=== PATIENT | male | born 1960 | race Caucasian/White ===

== ENCOUNTER 2018-03-30 10:32 | Emergency (ER) | payer MEDICARE ==
[2018-03-30 10:46] VITALS: BP 164/95; PULSE 69; RESP 16; TEMP 97.6; O2SAT 95
[2018-03-30] MEDS ORDERED: METF1000 PO (11:39)
[2018-03-30] MEDS ORDERED: NIAC500T5 PO (11:39)
[2018-03-30] MEDS ORDERED: D 50CAP2 PO (11:39)
[2018-03-30] MEDS ORDERED: OXYC-103 PO (11:39)
[2018-03-30] MEDS ORDERED: ATOR80TA45 PO (11:39)
[2018-03-30] MEDS ORDERED: GLIM1TAB PO (11:39)
[2018-03-30] MEDS ORDERED: FAMO20TA2 PO (11:39)
[2018-03-30] MEDS ORDERED: ASPI-516 CHEW (11:39)
[2018-03-30] MEDS ORDERED: LISI-519 PO (11:39)
[2018-03-30] MEDS ORDERED: CARV6.252 PO (11:39)
[2018-03-30] MEDS ORDERED: GABA400C5 PO (11:39)
[2018-03-30] MEDS ORDERED: PLAV75TA29 PO (11:39)
[2018-03-30] MEDS ORDERED: ISOS60TA PO (11:39)
--- NOTE | 2018-03-30 12:16 | PD ---
HPI Chief Complaint: Edema Time Seen by Provider: 12:05 Travel History International Travel<30 days: No Contact w/Intl Traveler<30days: No Traveled to known affect area: No History of Present Illness HPI This 58-year-old male is complaining of swelling of both feet. Says he noticed it yesterday and it seemed worse today. He is not aware of having this before. He has a history of coronary artery disease and has had bypass surgery. He is not aware of any history of CHF. He has not been short of breath. He lives in [place] and sent in a car for 10 hours 3 days ago to come here to visit his friend. He does take Plavix PFSH Past Medical History Hx Anticoagulant Therapy: Yes Cardiac Catheterization: Yes Cardiovascular Problems: Yes (BYPASS, STENT, LEFT CAROTID) High Cholesterol: Yes Chest Pain: Yes Coronary Artery Disease: Yes Diabetes: Yes Patient Takes Glucophage: Yes Diminished Hearing: No Hypertension: Yes Musculoskeletal: Yes (DDD/CHRONIC PAIN) Tetanus Vaccination: < 5 Years Influenza Vaccination: Yes Past Surgical History Cardiac Surgery: Yes (CARODIDECTOMY) Coronary Artery Bypass Graft: Yes (X4) Coronary Stent: Yes Social History Alcohol Use: Yes (SOCIAL) Tobacco Use: Yes (1/2 PPD) Substance Use: No Allergies-Medications (Allergen,Severity, Reaction): Coded Allergies: No Known Drug Allergies (Verified Allergy, Unknown, 03/30/18) Reported Meds & Prescriptions Reported Meds & Active Scripts Active Reported Niacin 500 Mg Tab 500 Mg PO DAILY Gabapentin 400 Mg Cap 400 Cap PO TID Oxycontin (Oxycodone HCl) 10 Mg Tab 27 Mg PO Q12HR Lisinopril 5 Mg Tab 5 Mg PO DAILY Aspirin 81 Mg Chew 81 Mg CHEW DAILY D3 Maximum Strength (Cholecalciferol) 5,000 Unit Cap 5,000 Units PO DAILY Plavix (Clopidogrel Bisulfate) 75 Mg Tab 75 Mg PO DAILY Metformin (Metformin HCl) 1,000 Mg Tab 1,000 Mg PO BIDPC Carvedilol 6.25 Mg Tab 6.25 Mg PO BID Atorvastatin (Atorvastatin Calcium) 80 Mg Tab 80 Mg PO HS Isosorbide Mononitrate ER (Isosorbide Mononitrate) 60 Mg Tab 60 Mg PO DAILY Famotidine 20 Mg Tab 20 Mg PO BID Glimepiride 1 Mg Tab 1 Mg PO DAILY Take with breakfast or first main meal Review of Systems General / Constitutional: No: Fever, Chills Eyes: No: Diploplia, Blurred Vision HENT: No: Headaches, Vertigo Cardiovascular: Positive: Edema, No: Chest Pain or Discomfort, Palpitations Respiratory: No: Cough, Shortness of Breath Gastrointestinal: No: Nausea, Vomiting Genitourinary: No: Urgency, Frequency Skin: No Rash Neurologic: No: Weakness Physical Exam Narrative GENERAL: Well-developed male SKIN: Focused skin assessment warm/dry. HEAD: Atraumatic. Normocephalic. EYES: Pupils equal and round. No scleral icterus. No injection or drainage. ENT: No nasal bleeding or discharge. Mucous membranes pink and moist. NECK: Trachea midline. No JVD. CARDIOVASCULAR: Regular rate and rhythm. No murmur appreciated. RESPIRATORY: No accessory muscle use. Clear to auscultation. Breath sounds equal bilaterally. GASTROINTESTINAL: Abdomen soft, non-tender, nondistended. Hepatic and splenic margins not palpable. MUSCULOSKELETAL: No obvious deformities. No clubbing. No cyanosis. There is bilateral pedal edema NEUROLOGICAL: Awake and alert. No obvious cranial nerve deficits. Motor grossly within normal limits. Normal speech. PSYCHIATRIC: Appropriate mood and affect; insight and judgment normal. Data Data Last Documented VS Vital Signs Date Time Temp Pulse Resp B/P (MAP) Pulse Ox O2 Delivery O2 Flow Rate FiO2 03/30/18 11:29 96 Room Air 03/30/18 10:46 97.6 69 16 164/95 (118) Orders Orders Complete Blood Count With Diff (03/30/18 12:10) Comprehensive Metabolic Panel (03/30/18 12:10) B-Type Natriuretic Peptide (03/30/18 12:10) Chest, Single Ap (03/30/18 12:10) Us Leg Venous Doppler Bilat (03/30/18 12:10) Labs Laboratory Tests Test 03/30/18 12:25 White Blood Count 9.3 TH/MM3 Red Blood Count 4.09 MIL/MM3 Hemoglobin 13.5 GM/DL Hematocrit 40.7 % Mean Corpuscular Volume 99.6 FL Mean Corpuscular Hemoglobin 32.9 PG Mean Corpuscular Hemoglobin Concent 33.1 % Red Cell Distribution Width 14.1 % Platelet Count 249 TH/MM3 Mean Platelet Volume 8.4 FL Neutrophils (%) (Auto) 65.3 % Lymphocytes (%) (Auto) 25.0 % Monocytes (%) (Auto) 7.9 % Eosinophils (%) (Auto) 0.9 % Basophils (%) (Auto) 0.9 % Neutrophils # (Auto) 6.1 TH/MM3 Lymphocytes # (Auto) 2.3 TH/MM3 Monocytes # (Auto) 0.7 TH/MM3 Eosinophils # (Auto) 0.1 TH/MM3 Basophils # (Auto) 0.1 TH/MM3 CBC Comment DIFF FINAL Differential Comment Blood Urea Nitrogen 16 MG/DL Creatinine 0.82 MG/DL Random Glucose 71 MG/DL Total Protein 6.8 GM/DL Albumin 3.5 GM/DL Calcium Level 8.9 MG/DL Alkaline Phosphatase 71 U/L Aspartate Amino Transf (AST/SGOT) 21 U/L Alanine Aminotransferase (ALT/SGPT) 23 U/L Total Bilirubin 0.4 MG/DL Sodium Level 139 MEQ/L Potassium Level 4.4 MEQ/L Chloride Level 104 MEQ/L Carbon Dioxide Level 29.7 MEQ/L Anion Gap 5 MEQ/L Estimat Glomerular Filtration Rate 97 ML/MIN B-Type Natriuretic Peptide 221 PG/ML MDM Medical Decision Making Medical Screen Exam Complete: Yes Emergency Medical Condition: Yes Medical Record Reviewed: Yes Differential Diagnosis Differential includes dependent edema, CHF, DVT Narrative Course Patient was on a 10 hour car ride just 3 days ago so an ultrasound was done to assess for DVT and has been read as negative. BNP is 220 and x-ray is read as negative. Patient will be given a short course of Lasix. Diagnosis Primary Impression: Dependent edema Scripts Potassium Chloride ER (Potassium Chloride ER) 10 Meq Tab 10 MEQ PO DAILY for Electrolyte Replacement, #10 TAB 0 Refills Prov: Ashok Landers MD 03/30/18 Furosemide (Lasix) 40 Mg Tab 40 MG PO DAILY, #30 TAB 0 Refills Prov: Ashok Landers MD 03/30/18 Disposition: 01 DISCHARGE HOME Condition: Stable Ashok Landers MD March 30, 2018 12:16
[2018-03-30 12:38] LABS: AUTOMATED NEUTROPHIL # 6.1 TH/MM3 (1.8-7.7); BASOPHIL # 0.1 TH/MM3 (0-0.2); BASOPHIL % 0.9 % (0.0-2.0); EOSINOPHIL # 0.1 TH/MM3 (0-0.4); EOSINOPHIL % 0.9 % (0.0-4.0); HEMATOCRIT 40.7 % (39.0-51.0); HEMOGLOBIN 13.5 GM/DL (13.0-17.0); LYMPHOCYTE # 2.3 TH/MM3 (1.0-4.8); MEAN CELL VOLUME 99.6 FL (80.0-100.0); MEAN CORPUSCULAR HEMOGLOBIN 32.9 PG (27.0-34.0); MEAN CORPUSCULAR HGB CONC 33.1 % (32.0-36.0); MEAN PLATELET VOLUME 8.4 FL (7.0-11.0); MONO % 7.9 % (0.0-8.0); MONOCYTE # 0.7 TH/MM3 (0-0.9); NEUT % 65.3 % (16.0-70.0); PLATELET COUNT 249 TH/MM3 (150-450); RED BLOOD COUNT 4.09 MIL/MM3 (4.50-5.90); RED CELL DISTRIBUTION WIDTH 14.1 % (11.6-17.2); WHITE BLOOD COUNT 9.3 TH/MM3 (4.0-11.0)
[2018-03-30 12:49] LABS: CHLORIDE 104 MEQ/L (98-107); SODIUM (NA) 139 MEQ/L (136-145)
[2018-03-30 12:53] LABS: ALBUMIN 3.5 GM/DL (3.4-5.0); BICARBONATE 29.7 MEQ/L (21.0-32.0); CALCIUM 8.9 MG/DL (8.5-10.1); GLUCOSE,RANDOM 71 MG/DL (74-106)
[2018-03-30 12:54] LABS: BLOOD UREA NITROGEN 16 MG/DL (7-18)
[2018-03-30 12:56] LABS: ALT (GPT) 23 U/L (12-78); AST (GOT) 21 U/L (15-37); CREATININE 0.82 MG/DL (0.60-1.30); GLOMERULAR FILTRATION RATE 97 ML/MIN (>89)
[2018-03-30 12:58] LABS: TOTAL BILIRUBIN ADULT 0.4 MG/DL (0.2-1.0); TOTAL PROTEIN 6.8 GM/DL (6.4-8.2)
[2018-03-30 12:59] LABS: ALKALINE PHOSPHATASE 71 U/L (45-117)
--- NOTE | 2018-03-30 13:18 | RADRPT ---
EXAM DATE/TIME: 03/30/2018 13:04 [facility] COMPARISON: No previous studies available for comparison. INDICATIONS : Short of breath, bilateral lower extremity swelling. MEDICAL HISTORY : Hypertension. Diabetes mellitus type II. SURGICAL HISTORY : CABG. ENCOUNTER: Initial ACUITY: 2 days PAIN SCORE: 0/10 LOCATION: Bilateral chest FINDINGS: A single view of the chest demonstrates the lungs to be symmetrically aerated without evidence of mas s, infiltrate or effusion. The cardiomediastinal contours are unremarkable. Osseous structures are intact. Pleural based calcifications at the left lung base. CONCLUSION: No acute disease. Leonel David MD on March 30, 2018 at 13:15 Board Certified Radiologist. This report was verified electronically.
--- NOTE | 2018-03-30 13:30 | RADRPT ---
EXAM DATE/TIME: 03/30/2018 12:40 [facility] COMPARISON: No previous studies available for comparison. INDICATIONS : Bilateral feet swelling. MEDICAL HISTORY : Hypercholesterolemia. Hypertension. Coronary artery disease. Chest pain. Diabetes. Chronic back pain . Anticoagulant therapy, Plavix. SURGICAL HISTORY : CABGCoronary artery stent. Left carotid endarectomy. Cardiac cath. ENCOUNTER: Initial ACUITY: 2 day PAIN SCORE: 0/10 LOCATION: Bilateral leg. TECHNIQUE: Venous ultrasound of the left and right leg was performed from the inguinal ligament to the proximal calf. Real-time, color Doppler and spectral tracing, compression and augmentation techniques were us ed. FINDINGS: RIGHT LEG: There is normal compressibility of the deep venous system from the inguinal region to the proximal ca lf. No echogenic clot is seen in the lumen of the common femoral, femoral, popliteal, and posterior tibial veins. There is a normal response of the venous system to proximal and distal augmentation an d respiration. LEFT LEG: There is normal compressibility of the deep venous system from the inguinal region to the proximal ca lf. No echogenic clot is seen in the lumen of the common femoral, femoral, popliteal, and posterior tibial veins. There is a normal response of the venous system to proximal and distal augmentation an d respiration. 3.4 x 0.9 x 1.3 cm popliteal fossa cyst. CONCLUSION: No evidence for DVT. Left Murphy's cyst. Leonel David MD on March 30, 2018 at 13:27 Board Certified Radiologist. This report was verified electronically.
[2018-03-30] MEDS ORDERED: POTA10TA2 PO (14:49)
[2018-03-30] MEDS ORDERED: FURO1TAB60 PO (14:49)
[2018-03-30 15:03] VITALS: BP 188/95
== END 2018-03-30 15:19 | disposition home or self-care (01) ==
LOC: PHED 10:32
DX: R60.9 Edema, unspecified (principal); E78.00 Pure hypercholesterolemia, unspecified; I25.10 Atherosclerotic heart disease of native coronary artery without angina pectoris; E11.9 Type 2 diabetes mellitus without complications; I10 Essential (primary) hypertension; G89.29 Other chronic pain; Z95.1 Presence of aortocoronary bypass graft; Z95.5 Presence of coronary angioplasty implant and graft; F17.200 Nicotine dependence, unspecified, uncomplicated
CPT/HCPCS: 71045; 80053; 83880; 85025; 93970

== ENCOUNTER 2018-06-03 11:03 | Inpatient (IN) ==
[2018-06-03] MEDS ORDERED: Naloxone Inj 2 MG/2 ML Vial IV.PUSH ONE (11:12)
[2018-06-03] MEDS ORDERED: Sod Chloride 0.9% Inj 1,000 ML IV.SIG SCH ×2 (11:15)
[2018-06-03] MEDS ORDERED: Sod Chloride 0.9% Inj 700 ML IV.SIG SCH (11:15)
[2018-06-03 11:33] LABS: Baso % (Auto) 0.2 % (0.0-2.0); Eos % (Auto) 0.1 % (0.0-4.0); Hematocrit 34.8 % (39.0-51.0); Hemoglobin 11.2 gm/dL (13.0-17.0); Lymph # (Auto) 0.7 th/mm3 (1.0-4.8); Lymph % (Auto) 12.4 % (9.0-44.0); Mean Corpuscular Hemoglobin 33.6 pg (27.0-34.0); Mean Corpuscular Volume 105.1 fL (80.0-100.0); Mean Platelet Volume 8.6 fL (7.0-11.0); Mono # (Auto) 0.5 th/mm3 (0.0-0.9); Mono % (Auto) 9.2 % (0.0-8.0); Neut # (Auto) 4.6 th/mm3 (1.8-7.7); Neut % (Auto) 78.1 % (16.0-70.0); Platelet Count 161 th/mm3 (150-450); Red Blood Count 3.32 mil/mm3 (4.50-5.90); Red Cell Distribution Width 15.2 % (11.6-17.2); White Blood Count 5.9 th/mm3 (4.0-11.0)
[2018-06-03 11:46] LABS: Activated Partial Thrombo Time 23.9 sec (24.3-30.1); INR 1.1 Ratio; Prothrombin Time 11.4 sec (9.8-11.6)
[2018-06-03 11:54] LABS: Albumin 2.7 g/dL (3.4-5.0); Anion Gap 9 meq/L (5-15); Aspartate Aminotransferase 513 U/L (15-37); Blood Urea Nitrogen 25 mg/dL (7-18); Carbon Dioxide 28.2 meq/L (21.0-32.0); Chloride 103 meq/L (98-107); Glomerular Filtration Rate 24 mL/min (>89); Glucose,Random 115 mg/dL (74-106); Potassium 5.5 meq/L (3.5-5.1); Sodium 140 meq/L (136-145)
[2018-06-03 11:55] LABS: Alanine Aminotransferase 389 U/L (12-78)
--- NOTE | 2018-06-03 11:57 | XR ---
EXAM DATE: 06/03/2018 11:52 AM EDT AGE/SEX: 89 years / Male INDICATIONS: Stroke like symptoms, slurred speech. CLINICAL DATA: This is the patient's initial encounter. Patient reports that signs and symptoms have been present for 1 day and indicates a pain score of Nonresponsive. MEDICAL/SURGICAL HISTORY: Non-responsive. Non-responsive. COMPARISON: No prior exams available for comparison. FINDINGS: A single AP view of the chest demonstrates elevation of the right hemidiaphragm. Suggestion of some d iaphragmatic or pleural-based calcifications in the left base. No confluent infiltrate. Heart size is prominent but well compensated. Intact median sternotomy wires. Multilevel degenerative spurring of the dorsal spine. Osseous structures are otherwise intact. CONCLUSION: 1. Heart size is borderline prominent but well compensated. 2. No confluent infiltrate. 3. Suggestion of pleural or diaphragmatic based calcifications in the left base. Electronically signed by: Arturo Milner MD 06/03/2018 11:56 AM EDT
[2018-06-03 11:58] LABS: Alkaline Phosphatase 122 U/L (45-117); Total Protein 5.4 g/dL (6.4-8.2)
[2018-06-03 12:02] LABS: Troponin I 4.53 ng/mL (0.02-0.05)
--- NOTE | 2018-06-03 12:59 | ED ---
HPI General Chief Complaint: Altered Mental Status Stated Complaint: Medical Time Seen by Provider: 06/03/18 11:07 Source: patient, family, EMS and other ([employer]) Mode of arrival: EMS Limitations: altered mental status History of Present Illness HPI narrative: The patient is a 58-year-old male with a past medical history of coronary artery disease and ischemic cardiomyopathy with a reduced EF that was brought to the emergency department with altered mental status and pinpoint pupils. As per paramedics he was hypotensive on arrival the house with a systolic blood pressure of 70 and they started him on fluids. Patient was arousable and responding to painful stimuli. After the patient was given Narcan he immediately became a lot more alert as aggressive with staff and did not want us to intervene. I was able to discuss his presentation with him and he was more compliant allow us to intervene. He did not have any complaints no chest pain nausea vomiting no dizziness. He denied any drug use. He states that he has pain medication that he only takes once a day and he did not take more. MD complaint: altered mental status and decreased responsiveness Onset (ago): unknown Context: drug abuse (Possibly) Associated symptoms: denies other symptoms Related Data Home Medications Medication Instructions Recorded Confirmed Unable to Obtain Home Meds 06/03/18 06/03/18 Allergies Allergy/AdvReac Type Severity Reaction Status Date / Time No Known Allergies Allergy Unverified 06/03/18 11:07 Review of Systems ROS Unobtainable unobtainable due to mental condition Patient initially somnolent unable to obtain review of systems. However after he was given Narcan he woke up. On the multiple reevaluation she was asked if he had any shortness of breath chest pain headache nausea vomiting fransico denied at all times. [facility] Medical History Medical History Diabetes (Acute) Hypertension (Acute) Surgical History Surgical History S/P CABG x 4 (Acute) Social History Social History Substance History: Unable to Obtain Smoking Status: Current every day smoker Tobacco Type: Cigarettes How Often Do You Have a Drink Containing Alcohol: Unable to Obtain Recent Travel in [facility] within the Last 8 Weeks: No Recent Out of Country Travel within the Last 8 Weeks: No Immunization History Tetanus Immunization: Unsure Exam Const General: does not appear intoxicated and lethargic Nutritional Appearance: well nourished Orientation: obtunded Limitations: altered mental status [facility] Head: no palpable skull fracture, normocephalic and atraumatic Nose: no nasal discharge and no epistaxis Mouth: moist mucous membranes Eyes Sclera: normal sclerae Pupils: pinpoint bilaterally Neck Neck: normal visual inspection, trachea midline and no JVD Chest Chest: normal inspection of the chest Resp Effort & Inspection: normal respiratory effort and no use of accessory muscles Auscultation: clear to auscultation bilaterally Cardio Rate: regular rate Rhythm: regular rhythm Heart Sounds: no murmurs Bruits: no abdominal aortic bruits and no carotid bruits GI Inspection: non-distended Palpation: soft, no hepatosplenomegaly and nontender Skin General: dry skin (warm) Neuro General: not alert and not awake Cranial Nerves: CN's II-XI intact bilaterally and other Speech: speech normal Motor: no movement abnormalities noted Pupils: Pinpoint: bilateral Other: Patient sedated arouses to sternal rub. after he was given Narcan he was more alert was able to perform an neuro exam however he does not want to follow commands appears to move all extremities without any signs of neurologic deficit. Extrem General: normal to inspection, no clubbing, no cyanosis and no edema Psych Mood: congruent mood Affect: normal affect Judgment: judgment good Course Reevaluation(s) Reevaluation #3: Reevaluation patient is resting comfortably no distress blood pressure 96/54. His troponin the repeat is actually higher than the initial one still no ST elevation [place] on repeat EKG. Time: 13:03 Consultations Consultation #1: Possibly cardiac cath in the a.m. Hold heparin at this time. Will obtain a head CT. Time: 13:15 Initial Documented Vital Signs Pulse Oximetry 94 L 06/03/18 11:03 Last Documented Vital Signs Temperature 97.6 F 06/03/18 17:00 Pulse Rate 104 H 06/03/18 17:00 Respiratory Rate 22 06/03/18 17:05 Blood Pressure 109/73 06/03/18 17:00 Pulse Oximetry 97 06/03/18 18:00 Critical Care Time Critical Care Time: Yes Total Critical Care Time: 30 Attestation: Upon of my evaluation patient has a high probability of imminent or life threatening deterioration due to mental status elevated troponin and possibly drug overdose which require my direct attention intervention and personal management. Spent approximately 30 minutes of critical care time separately from billable procedures. Time includes review of laboratory data, radiology results, discussion with consultants, and monitoring for potential decompensations. Interventions were performed as documented within the note. Medical Decision Making MDM Narrative Medical decision making narrative: Patient likely with opiate overdose since he responded well to Narcan. Acute kidney injury likely secondary to hypotension also and STEMI likely secondary to demand ischemia. Hyperkalemia 5.5 also noted patient was given calcium chloride, D50, insulin. No EKG changes due to hyperkalemia Elevated troponin was noted patient denied chest pain or shortness of breath. EKG not suggestive of ST elevation [place]. Presentation was discussed with interventional cardiology but will follow the patient. Lab Data Lab results reviewed: Yes I reviewed the patient's lab results. Result diagrams: 06/03/18 11:20 06/03/18 11:20 Lab Results 06/03/18 06/03/18 06/03/18 Range/Units 11:20 11:20 11:20 WBC 5.9 (4.0-11.0) th/mm3 RBC 3.32 L (4.50-5.90) mil/mm3 Hgb 11.2 L (13.0-17.0) gm/dL Hct 34.8 L (39.0-51.0) % MCV 105.1 H (80.0-100.0) fL MCH 33.6 (27.0-34.0) pg MCHC 32.0 (32.0-36.0) % RDW 15.2 (11.6-17.2) % Plt Count 161 (150-450) th/mm3 MPV 8.6 (7.0-11.0) fL Neut % (Auto) 78.1 H (16.0-70.0) % Lymph % (Auto) 12.4 (9.0-44.0) % [place] % (Auto) 9.2 H (0.0-8.0) % Eos % (Auto) 0.1 (0.0-4.0) % Baso % (Auto) 0.2 (0.0-2.0) % Neut # (Auto) 4.6 (1.8-7.7) th/mm3 Lymph # (Auto) 0.7 L (1.0-4.8) th/mm3 Jennings # (Auto) 0.5 (0.0-0.9) th/mm3 Eos # (Auto) 0.0 (0.0-0.4) th/mm3 Baso # (Auto) 0.0 (0.0-0.2) th/mm3 WBC Differential . Differential Comment Auto diff final PT 11.4 (9.8-11.6) sec INR 1.1 Ratio APTT 23.9 L (24.3-30.1) sec Puncture Site Patient Temperature O2 Saturation (90-100) % ABG pH (7.380-7.420) ABG pCO2 (38-42) mmHg ABG pO2 (61-120) mmHg ABG HCO3 (22-26) mmol/L ABG O2 Content (12.0-20.0) Vol % ABG Base Excess (-2-2) mmol/L ABG Methemoglobin (0-2) % Walter Test Hemoglobin (12.0-16.0) G/DL Carboxyhemoglobin (0-4) % O2 Delivery Device Liter Flow L/M Inspired O2 % Critical Value Sodium (136-145) meq/L Potassium (3.5-5.1) meq/L Chloride (98-107) meq/L Carbon Dioxide (21.0-32.0) meq/L Anion Gap (5-15) meq/L BUN (7-18) mg/dL Creatinine (0.60-1.30) mg/dL Estimated GFR (>89) mL/min Random Glucose (74-106) mg/dL Lactic Acid (0.4-2.0) mmol/L Calcium (8.5-10.1) mg/dL Magnesium 2.0 (1.5-2.5) mg/dL Total Bilirubin (0.2-1.0) mg/dL AST (15-37) U/L ALT (12-78) U/L Alkaline Phosphatase (45-117) U/L Total Creatine Kinase (39-308) U/L CK-MB (CK-2) (0.5-3.6) ng/mL Troponin I 4.53 H* (0.02-0.05) ng/mL Total Protein (6.4-8.2) g/dL Albumin (3.4-5.0) g/dL Urine Color (Yellw/Straw) Urine Clarity (Clear) Urine pH (5.0-8.5) Ur Specific [place] (1.002-1.035) Urine Protein (Neg-Trace) mg/dL Urine Glucose (UA) (Negative) mg/dL Urine Ketones (Negative) mg/dL Urine Occult Blood (Negative) Urine Nitrate (Negative) Urine Bilirubin (Negative) Urine Urobilinogen (Less than 2) mg/dL Ur Leukocyte Esterase (Negative) Urine RBC (0-3) /hpf Urine WBC (0-5) /hpf Ur Squamous Epith Cells (0-5) /hpf Hyaline Casts (0-3) /lpf Urine Mucus (Occasional) /lpf Micro UA Comment Urine Culture Comments Urine Opiates Screen (Neg) Ur Barbiturates Screen (Neg) Ur Amphetamines Screen (Neg) U Benzodiazepines Scrn (Neg) Urine Cocaine Screen (Neg) U Cannabinoids Screen (Neg) Serum Alcohol (0-5) mg/dL 06/03/18 06/03/18 06/03/18 Range/Units 11:20 11:20 11:20 WBC (4.0-11.0) th/mm3 RBC (4.50-5.90) mil/mm3 Hgb (13.0-17.0) gm/dL Hct (39.0-51.0) % MCV (80.0-100.0) fL MCH (27.0-34.0) pg MCHC (32.0-36.0) % RDW (11.6-17.2) % Plt Count (150-450) th/mm3 MPV (7.0-11.0) fL Neut % (Auto) (16.0-70.0) % Lymph % (Auto) (9.0-44.0) % [place] % (Auto) (0.0-8.0) % Eos % (Auto) (0.0-4.0) % Baso % (Auto) (0.0-2.0) % Neut # (Auto) (1.8-7.7) th/mm3 Lymph # (Auto) (1.0-4.8) th/mm3 [place] # (Auto) (0.0-0.9) th/mm3 Eos # (Auto) (0.0-0.4) th/mm3 Baso # (Auto) (0.0-0.2) th/mm3 WBC Differential Differential Comment PT (9.8-11.6) sec INR Ratio APTT (24.3-30.1) sec Puncture Site Patient Temperature O2 Saturation (90-100) % ABG pH (7.380-7.420) ABG pCO2 (38-42) mmHg ABG pO2 (61-120) mmHg ABG HCO3 (22-26) mmol/L ABG O2 Content (12.0-20.0) Vol % ABG Base Excess (-2-2) mmol/L ABG Methemoglobin (0-2) % Walter Test Hemoglobin (12.0-16.0) G/DL Carboxyhemoglobin (0-4) % O2 Delivery Device Liter Flow L/M Inspired O2 % Critical Value Sodium 140 (136-145) meq/L Potassium 5.5 H (3.5-5.1) meq/L Chloride 103 (98-107) meq/L Carbon Dioxide 28.2 (21.0-32.0) meq/L Anion Gap 9 (5-15) meq/L BUN 25 H (7-18) mg/dL Creatinine 2.31 H (0.60-1.30) mg/dL Estimated GFR 24 L (>89) mL/min Random Glucose 115 H (74-106) mg/dL Lactic Acid 2.3 H (0.4-2.0) mmol/L Calcium 8.0 L (8.5-10.1) mg/dL Magnesium (1.5-2.5) mg/dL Total Bilirubin 0.6 (0.2-1.0) mg/dL AST 513 H (15-37) U/L ALT 389 H (12-78) U/L Alkaline Phosphatase 122 H (45-117) U/L Total Creatine Kinase (39-308) U/L CK-MB (CK-2) (0.5-3.6) ng/mL Troponin I (0.02-0.05) ng/mL Total Protein 5.4 L (6.4-8.2) g/dL Albumin 2.7 L (3.4-5.0) g/dL Urine Color (Yellw/Straw) Urine Clarity (Clear) Urine pH (5.0-8.5) Ur Specific [place] (1.002-1.035) Urine Protein (Neg-Trace) mg/dL Urine Glucose (UA) (Negative) mg/dL Urine Ketones (Negative) mg/dL Urine Occult Blood (Negative) Urine Nitrate (Negative) Urine Bilirubin (Negative) Urine Urobilinogen (Less than 2) mg/dL Ur Leukocyte Esterase (Negative) Urine RBC (0-3) /hpf Urine WBC (0-5) /hpf Ur Squamous Epith Cells (0-5) /hpf Hyaline Casts (0-3) /lpf Urine Mucus (Occasional) /lpf Micro UA Comment Urine Culture Comments Urine Opiates Screen (Neg) Ur Barbiturates Screen (Neg) Ur Amphetamines Screen (Neg) U Benzodiazepines Scrn (Neg) Urine Cocaine Screen (Neg) U Cannabinoids Screen (Neg) Serum Alcohol Less than 3 (0-5) mg/dL 06/03/18 06/03/18 06/03/18 Range/Units 12:20 12:20 14:25 WBC (4.0-11.0) th/mm3 RBC (4.50-5.90) mil/mm3 Hgb (13.0-17.0) gm/dL Hct (39.0-51.0) % MCV (80.0-100.0) fL MCH (27.0-34.0) pg MCHC (32.0-36.0) % RDW (11.6-17.2) % Plt Count (150-450) th/mm3 MPV (7.0-11.0) fL Neut % (Auto) (16.0-70.0) % Lymph % (Auto) (9.0-44.0) % Jennings % (Auto) (0.0-8.0) % Eos % (Auto) (0.0-4.0) % Baso % (Auto) (0.0-2.0) % Neut # (Auto) (1.8-7.7) th/mm3 Lymph # (Auto) (1.0-4.8) th/mm3 [place] # (Auto) (0.0-0.9) th/mm3 Eos # (Auto) (0.0-0.4) th/mm3 Baso # (Auto) (0.0-0.2) th/mm3 WBC Differential Differential Comment PT (9.8-11.6) sec INR Ratio APTT (24.3-30.1) sec Puncture Site Patient Temperature O2 Saturation (90-100) % ABG pH (7.380-7.420) ABG pCO2 (38-42) mmHg ABG pO2 (61-120) mmHg ABG HCO3 (22-26) mmol/L ABG O2 Content (12.0-20.0) Vol % ABG Base Excess (-2-2) mmol/L ABG Methemoglobin (0-2) % Walter Test Hemoglobin (12.0-16.0) G/DL Carboxyhemoglobin (0-4) % O2 Delivery Device Liter Flow L/M Inspired O2 % Critical Value Sodium (136-145) meq/L Potassium (3.5-5.1) meq/L Chloride (98-107) meq/L Carbon Dioxide (21.0-32.0) meq/L Anion Gap (5-15) meq/L BUN (7-18) mg/dL Creatinine (0.60-1.30) mg/dL Estimated GFR (>89) mL/min Random Glucose (74-106) mg/dL Lactic Acid 2.4 H (0.4-2.0) mmol/L Calcium (8.5-10.1) mg/dL Magnesium (1.5-2.5) mg/dL Total Bilirubin (0.2-1.0) mg/dL AST (15-37) U/L ALT (12-78) U/L Alkaline Phosphatase (45-117) U/L Total Creatine Kinase 274 (39-308) U/L CK-MB (CK-2) 12.7 H (0.5-3.6) ng/mL Troponin I 5.22 H* (0.02-0.05) ng/mL Total Protein (6.4-8.2) g/dL Albumin (3.4-5.0) g/dL Urine Color (Yellw/Straw) Urine Clarity (Clear) Urine pH (5.0-8.5) Ur Specific [place] (1.002-1.035) Urine Protein (Neg-Trace) mg/dL Urine Glucose (UA) (Negative) mg/dL Urine Ketones (Negative) mg/dL Urine Occult Blood (Negative) Urine Nitrate (Negative) Urine Bilirubin (Negative) Urine Urobilinogen (Less than 2) mg/dL Ur Leukocyte Esterase (Negative) Urine RBC (0-3) /hpf Urine WBC (0-5) /hpf Ur Squamous Epith Cells (0-5) /hpf Hyaline Casts (0-3) /lpf Urine Mucus (Occasional) /lpf Micro UA Comment Urine Culture Comments Urine Opiates Screen (Neg) Ur Barbiturates Screen (Neg) Ur Amphetamines Screen (Neg) U Benzodiazepines Scrn (Neg) Urine Cocaine Screen (Neg) U Cannabinoids Screen (Neg) Serum Alcohol (0-5) mg/dL 06/03/18 06/03/18 06/03/18 Range/Units 15:04 15:04 15:04 WBC (4.0-11.0) th/mm3 RBC (4.50-5.90) mil/mm3 Hgb (13.0-17.0) gm/dL Hct (39.0-51.0) % MCV (80.0-100.0) fL MCH (27.0-34.0) pg MCHC (32.0-36.0) % RDW (11.6-17.2) % Plt Count (150-450) th/mm3 MPV (7.0-11.0) fL Neut % (Auto) (16.0-70.0) % Lymph % (Auto) (9.0-44.0) % Jennings % (Auto) (0.0-8.0) % Eos % (Auto) (0.0-4.0) % Baso % (Auto) (0.0-2.0) % Neut # (Auto) (1.8-7.7) th/mm3 Lymph # (Auto) (1.0-4.8) th/mm3 [place] # (Auto) (0.0-0.9) th/mm3 Eos # (Auto) (0.0-0.4) th/mm3 Baso # (Auto) (0.0-0.2) th/mm3 WBC Differential Differential Comment PT (9.8-11.6) sec INR Ratio APTT (24.3-30.1) sec Puncture Site Patient Temperature O2 Saturation (90-100) % ABG pH (7.380-7.420) ABG pCO2 (38-42) mmHg ABG pO2 (61-120) mmHg ABG HCO3 (22-26) mmol/L ABG O2 Content (12.0-20.0) Vol % ABG Base Excess (-2-2) mmol/L ABG Methemoglobin (0-2) % Walter Test Hemoglobin (12.0-16.0) G/DL Carboxyhemoglobin (0-4) % O2 Delivery Device Liter Flow L/M Inspired O2 % Critical Value Sodium (136-145) meq/L Potassium (3.5-5.1) meq/L Chloride (98-107) meq/L Carbon Dioxide (21.0-32.0) meq/L Anion Gap (5-15) meq/L BUN (7-18) mg/dL Creatinine (0.60-1.30) mg/dL Estimated GFR (>89) mL/min Random Glucose (74-106) mg/dL Lactic Acid (0.4-2.0) mmol/L Calcium (8.5-10.1) mg/dL Magnesium (1.5-2.5) mg/dL Total Bilirubin (0.2-1.0) mg/dL AST (15-37) U/L ALT (12-78) U/L Alkaline Phosphatase (45-117) U/L Total Creatine Kinase (39-308) U/L CK-MB (CK-2) (0.5-3.6) ng/mL Troponin I (0.02-0.05) ng/mL Total Protein (6.4-8.2) g/dL Albumin (3.4-5.0) g/dL Urine Color Yellow (Yellw/Straw) Urine Clarity Hazy H (Clear) Urine pH 5.0 (5.0-8.5) Ur Specific [place] 1.018 (1.002-1.035) Urine Protein 30 H (Neg-Trace) mg/dL Urine Glucose (UA) 50 (Negative) mg/dL Urine Ketones Negative (Negative) mg/dL Urine Occult Blood Negative (Negative) Urine Nitrate Negative (Negative) Urine Bilirubin Negative (Negative) Urine Urobilinogen Less than 2 (Less than 2) mg/dL Ur Leukocyte Esterase Negative (Negative) Urine RBC 1 (0-3) /hpf Urine WBC 1 (0-5) /hpf Ur Squamous Epith Cells <1 (0-5) /hpf Hyaline Casts 4 (0-3) /lpf Urine Mucus Few H (Occasional) /lpf Micro UA Comment Cath-culture not ind Urine Culture Comments Cath-cult not ind Urine Opiates Screen Neg Cancelled (Neg) Ur Barbiturates Screen Neg Cancelled (Neg) Ur Amphetamines Screen Neg Cancelled (Neg) U Benzodiazepines Scrn Neg Cancelled (Neg) Urine Cocaine Screen Neg Cancelled (Neg) U Cannabinoids Screen Neg Cancelled (Neg) Serum Alcohol (0-5) mg/dL 06/03/18 Range/Units 15:11 WBC (4.0-11.0) th/mm3 RBC (4.50-5.90) mil/mm3 Hgb (13.0-17.0) gm/dL Hct (39.0-51.0) % MCV (80.0-100.0) fL MCH (27.0-34.0) pg MCHC (32.0-36.0) % RDW (11.6-17.2) % Plt Count (150-450) th/mm3 MPV (7.0-11.0) fL Neut % (Auto) (16.0-70.0) % Lymph % (Auto) (9.0-44.0) % Jennings % (Auto) (0.0-8.0) % Eos % (Auto) (0.0-4.0) % Baso % (Auto) (0.0-2.0) % Neut # (Auto) (1.8-7.7) th/mm3 Lymph # (Auto) (1.0-4.8) th/mm3 [place] # (Auto) (0.0-0.9) th/mm3 Eos # (Auto) (0.0-0.4) th/mm3 Baso # (Auto) (0.0-0.2) th/mm3 WBC Differential Differential Comment PT (9.8-11.6) sec INR Ratio APTT (24.3-30.1) sec Puncture Site Left radial Patient Temperature 98.6 O2 Saturation 87 L* (90-100) % ABG pH 7.24 L* (7.380-7.420) ABG pCO2 75 H* (38-42) mmHg ABG pO2 75 (61-120) mmHg ABG HCO3 31 H (22-26) mmol/L ABG O2 Content 13.1 (12.0-20.0) Vol % ABG Base Excess 4.2 H (-2-2) mmol/L ABG Methemoglobin 0.9 (0-2) % Walter Test Present Hemoglobin 10.7 L (12.0-16.0) G/DL Carboxyhemoglobin 5.7 H* (0-4) % O2 Delivery Device Nasal cannula Liter Flow 3.00 L/M Inspired O2 21 % Critical Value Yes Sodium (136-145) meq/L Potassium (3.5-5.1) meq/L Chloride (98-107) meq/L Carbon Dioxide (21.0-32.0) meq/L Anion Gap (5-15) meq/L BUN (7-18) mg/dL Creatinine (0.60-1.30) mg/dL Estimated GFR (>89) mL/min Random Glucose (74-106) mg/dL Lactic Acid (0.4-2.0) mmol/L Calcium (8.5-10.1) mg/dL Magnesium (1.5-2.5) mg/dL Total Bilirubin (0.2-1.0) mg/dL AST (15-37) U/L ALT (12-78) U/L Alkaline Phosphatase (45-117) U/L Total Creatine Kinase (39-308) U/L CK-MB (CK-2) (0.5-3.6) ng/mL Troponin I (0.02-0.05) ng/mL Total Protein (6.4-8.2) g/dL Albumin (3.4-5.0) g/dL Urine Color (Yellw/Straw) Urine Clarity (Clear) Urine pH (5.0-8.5) Ur Specific [place] (1.002-1.035) Urine Protein (Neg-Trace) mg/dL Urine Glucose (UA) (Negative) mg/dL Urine Ketones (Negative) mg/dL Urine Occult Blood (Negative) Urine Nitrate (Negative) Urine Bilirubin (Negative) Urine Urobilinogen (Less than 2) mg/dL Ur Leukocyte Esterase (Negative) Urine RBC (0-3) /hpf Urine WBC (0-5) /hpf Ur Squamous Epith Cells (0-5) /hpf Hyaline Casts (0-3) /lpf Urine Mucus (Occasional) /lpf Micro UA Comment Urine Culture Comments Urine Opiates Screen (Neg) Ur Barbiturates Screen (Neg) Ur Amphetamines Screen (Neg) U Benzodiazepines Scrn (Neg) Urine Cocaine Screen (Neg) U Cannabinoids Screen (Neg) Serum Alcohol (0-5) mg/dL Imaging Data Radiologist's impression: Pulmonary Perfusion Imaging 06/03/18 00:00 CONCLUSION: 1. Low probability pulmonary embolism. Chest X-Ray 06/03/18 11:08 CONCLUSION: 1. Heart size is borderline prominent but well compensated. 2. No confluent infiltrate. 3. Suggestion of pleural or diaphragmatic based calcifications in the left base. Head CT 06/03/18 13:18 CONCLUSION: 1. Negative CT Head non contrast. ECG Data EKG Prior to Arrival: No Interpretation: EKG obtained on 12:33 reveals sinus rhythm with nonspecific ST elevations and Q waves in inferior leads. Rate 82 bpm normal axis NE 199 ms QTc 426 ms. Abnormal EKG Discharge Plan Discharge Disposition Patient Disposition: 30 Still Patient Discharge Condition Condition: Critical Discharge Details Diagnosis: Altered mental status, JESUS (acute kidney injury), Opiate overdose, Acute hyperkalemia, Non-ST elevation (NSTEMI) myocardial infarction Physicians Team ED Provider: Eddie Rogel Primary Care Provider: UNKNOWN, Attending Provider: Tamir Quiñones Other Providers: Ramon Lainez ; Gilma Sky Discharge Interventions Interventions: ED Discharge Assessment Last Done: 06/03/18 17:05 Vital Signs Last Done: 06/03/18 12:38 Status ED Status: Left Department Discharge Information Discharge Date/Time: 06/03/18 17:06
[2018-06-03] MEDS ORDERED: Calcium Gluconate Inj 1 GM in Dextrose 5% in Water Inj 100 ML IV.SIG ONE ×2 (13:06)
[2018-06-03] MEDS ORDERED: Piperacil/Tazo 4.5 GM Premix 4.5 GM/100 ML BAG IV.SIG ONE (13:18)
[2018-06-03] MEDS ORDERED: Calcium Chloride Inj 1 GM in Dextrose 5% in Water Inj 100 ML IV.SIG ONE ×2 (13:35)
[2018-06-03] MEDS ORDERED: Dextrose 50% in Water 50 ML Vial IV.PUSH ONE (13:37)
[2018-06-03] MEDS ORDERED: Sod Chloride 0.9% Inj 1,000 ML IV.SIG ONE (13:58)
--- NOTE | 2018-06-03 14:26 | CT ---
EXAM DATE: 06/03/2018 2:16 PM EDT AGE/SEX: 89 years / Male INDICATIONS: Altered mental status CLINICAL DATA: This is the patient's initial encounter. Patient reports that signs and symptoms have been present for 1 day and indicates a pain score of Nonresponsive. MEDICAL/SURGICAL HISTORY: Diabetes. Hypertension. CABG. RADIATION DOSE: 56.31 CTDI (mGy) COMPARISON: No prior exams available for comparison. TECHNIQUE: CT of the head without contrast. Using automated exposure control and adjustment of the mA and/or kV according to patient size, radiation dose was kept as low as reasonably achievable to ob tain optimal diagnostic quality images. DICOM format image data is available electronically for revi ew and comparison. FINDINGS: Cerebrum: The ventricles are normal for age. No evidence of midline shift, mass lesion, hemorrhage or acute infarction. No extraaxial fluid collections are seen. Posterior Fossa: The cerebellum and brainstem are intact. The 4th ventricle is midline. The cerebe llopontine angle is unremarkable. Extracranial: The visualized portion of the orbits is intact. Skull: The calvaria is intact. No evidence of skull fracture. CONCLUSION: 1. Negative CT Head non contrast. Electronically signed by: Mikel Cleveland MD 06/03/2018 2:25 PM EDT
[2018-06-03] MEDS ORDERED: Heparin 10,000 UNITS/10 ML Vial (for IV use) IV.PUSH STA (14:46)
[2018-06-03] MEDS ORDERED: Aspirin 300 MG Supp RECTAL ONE (14:50)
[2018-06-03] MEDS ORDERED: Heparin Drip 25,000 UNIT/250 ML BAG IV.CONT PRN ×2 (15:00)
--- NOTE | 2018-06-03 15:08 | MB ---
cc: Ramon Lainez MD DATE: 06/03/2018 HISTORY OF PRESENT ILLNESS: Brady is a middle-aged appearing male who comes in as a Brady Carsone. History is limited. The patient has altered mental status and cannot give a history. He does not appear to be focal. REVIEW OF SYSTEMS: Unobtainable due to his encephalopathy. He presents with hypotension. PAST MEDICAL HISTORY: Includes CABG x 4, hypertension. ALLERGIES: NONE. SOCIAL HISTORY: Unknown. MEDICATIONS: In the hospital, he has received a fluid challenge, a dose of piperacillin/tazobactam, Narcan x 1, insulin 10 units subcutaneous x 1, calcium chloride, x 1. PHYSICAL EXAMINATION: VITAL SIGNS: Temperature 98.0, pulse 100, respiratory rate 24, blood pressure 130/85, blood pressure at 12:30 was 96/54, sats 94% on room air, 97% on 2 liters nasal cannula. GENERAL: He is obtunded, nonfocal, in no acute distress. NECK: Supple. No JVD. No bruit. CARDIOVASCULAR: S1, S2. No murmurs, rubs or gallops. LUNGS: Clear to auscultation bilaterally. ABDOMEN: Soft, nontender, and nondistended with positive bowel sounds. EXTREMITIES: No lower extremity edema. DIAGNOSTIC STUDIES: Chest x-ray: Heart size is borderline prominent, but well compensated. No confluent infiltrate. Suggestion of pleural or diaphragmatic base calcifications in the left base. EKG: Normal sinus rhythm at 93 beats per minutes; 1-[address] segment depression in V4, V5, V6. Second EKG: Normal sinus rhythm at 82 beats per minute with 1-[address] segment depression in V4, V5, V6. Labs: White count 5.9, hemoglobin 11.2, hematocrit 34.8, MCV 105.1, platelet count 161. INR 1.1. Sodium 140, potassium 5.5, chloride 103, bicarbonate 20.2, BUN 25, creatinine 2.31. Lactic acid 2.3. Magnesium 2.0. AST 513, ALT 389. Troponin is 4.53, followed by 5.22. Albumin 2.7. INR 1.1. DIAGNOSES: 1. [id number] myocardial infarction. 2. Coronary artery disease. 3. Encephalopathy. 4. Lactic acidosis. 5. Hypotension. 6. Hyperkalemia. 7. Acute renal failure. 8. Elevated liver enzymes. 9. Hypoalbuminemia. 10. Anemia. 11. Macrocytic anemia. DISCUSSION: I discussed the case with ____. Due to the patient's altered mental status, we will get a head CT first. I suspect his troponin elevation is secondary to his hypotension. He appears to probably have sepsis given the hypotension and lactic acidosis. Currently, the patient is unconsentable and the patient's family is not available. The troponins appear to be plateauing but nevertheless, we will continue to trend the troponins. We will need to get a neurology consult for determination of the etiology of the patient's encephalopathy. Follow up the head CT. Again, continue to follow the hemodynamic trends, responses to antibiotics and troponin trends. Further recommendations in terms of cardiac catheterization based on Neurology assessment and trends in troponin and hemodynamics. MD SHERICE Solano/DEAN , 02:22 PM , 03:06 PM
[2018-06-03 15:18] LABS: ABG Base Excess 4.2 mmol/L (-2-2); ABG PCO2 75 mmHg (38-42); ABG PO2 75 mmHg (61-120)
[2018-06-03 15:31] LABS: Creatine Kinase 274 U/L (39-308)
[2018-06-03] MEDS ORDERED: Naloxone Inj 0.4 MG/ML Vial ONE ×2 (15:35→18:57)
[2018-06-03 15:50] LABS: Creatine Kinase MB 12.7 ng/mL (0.5-3.6)
[2018-06-03 16:00] LABS: Bilirubin,Urine Negative (Negative); Clarity,Urine Hazy (Clear); Color,Urine Yellow (Yellw/Straw); Glucose,Urine (UA) 50 mg/dL (Negative); Hyaline Casts,Urine 4 /lpf (0-3); Leukocyte Esterase,Urine Negative (Negative); Mucus,Urine Few /lpf (Occasional); Nitrite,Urine Negative (Negative); Specific Gravity,Urine 1.018 (1.002-1.035); Squamous Epithelial Cell,Urine <1 /hpf (0-5)
[2018-06-03 16:03] LABS: Amphetamine Screen,Urine Neg (Neg); Barbiturate Screen,Urine Neg (Neg); Cannabinoid Screen,Urine Neg (Neg); Cocaine Screen,Urine Neg (Neg)
[2018-06-03 16:25] LABS: Opiate Screen,Urine Neg (Neg)
[2018-06-03] MEDS: DOBUTamine 250 MG/250 ML Premx 250 MG/250 ML BAG IV.CONT SCH ×2 (16:44→21:53)
--- NOTE | 2018-06-03 17:35 | P.HPCC ---
History of Present Illness Service: Critical Care Medicine Primary Care Physician: UNKNOWN Chief Complaint: alterd mental status History of Present Illness: Note: Real name is Luis Pope, 1960, MR# [id number] History of present illness: This is a 58-year-old male with a history of ischemic cardiomyopathy and EF of 30-35% with the last echo on 05/12/2018. He is visiting down from his home in [place] when he was found this morning by his family acutely altered. He was brought into the emergency department where he had pinpoint pupils and was given 2 mg of Narcan IV, at which point he woke up and began following commands. The patient takes 10 mg of OxyContin at home every 12 hours as well as 400 mg of gabapentin 3 times daily. His family is concerned that he may be abusing these medications. The patient is arousable, but somnolent and unable to provide any additional history. He denies taking extra or abusing any of these medications, although he does state to me "maybe I take an extra gabapentin ". Additionally, he was hypotensive in the emergency department not responsive to 2 L crystalloid fluid bolus. His labs are pertinent for creatinine of 2.3 with a baseline of 0.8 back in 03/2018. Initial troponin was 4.5 which misha to 5.2. EKG is significant for inferior Q waves as well as lateral ST depressions with T-wave inversions. Potassium is 5.5. Lactate was initially 2.3 which did not clear and is persistently 2.4 despite volume resuscitation. While I was evaluating the patient, I performed bedside critical care echocardiography which demonstrated a moderately depressed LVEF, moderate to severely depressed right ventricular function, a 2.4 cm dilated IVC without any respiratory variation, no pericardial effusion. I placed the patient on dobutamine at 5 mcg/kg/min with some improvement in his blood pressure. Of note, the patient recently had an ER visit here back in March 2018 where he had leg swelling with a mildly elevated BNP in the 200s and was sent home with additional Lasix. Patient is not on anticoagulation. The family states that he has not complained of shortness of breath, dyspnea on exertion. Chest pain, abdominal pain, or any other symptoms. The family does state that he recently lost his 6 months ago and they have all been worried about his mental condition since that time and have been trying to "cheer him up ". I discussed the case with his primary set up operator Dr. Ash Montaño from [facility] whose office phone number is [phone]. He states the patient has a long history of poor compliance. Has known ischemic cardiomyopathy. Last left heart catheterization was September 2016 where the patient had a chronically 100% occluded LAD, 90% ostial circumflex lesion, chronically occluded RCA, and at that time and acutely occluded reverse saphenous vein graft to a distal obtuse marginal which was successfully stented at that time in 2015. Recent transthoracic echocardiogram in 05/12/2018 demonstrated EF of 30-35%, no regional wall motion abnormalities, mildly dilated and mildly dysfunctional RV. His set up operator states that he was recently admitted less than a week ago in [place] with a BNP of 1580. Dr. Montaño also states that the patient often takes additional narcotic pain medication, this is been a concern of his for many years. Patient has been a candidate for an AICD in the past, but has been noncompliant with a LifeVest, which the patient recently received again less than a month ago, but is not currently wearing. Dr. Montaño feels that the patient is not compliant enough to be a good candidate for AICD therapy. Due to the patient's somnolence, review of systems is unobtainable. No additional information is available from patient. Past medical history: Ischemic cardiomyopathy, EF of 30-35% Tobacco abuse COPD Chronic opiate use Chronic pain syndrome Coronary artery disease Hyperlipidemia Hypertension Diabetes Past surgical history: Left carotid endarterectomy CABG 4 Coronary PCI, most recent 09/2016 Home medications: Obtained from most recent visit here in March 2018: Niacin 500 mg daily Gabapentin 400 mg 3 times daily OxyContin 10 mg p.o. twice daily Lisinopril 5 mg daily Aspirin 81 mg daily Vitamin D3 daily Plavix 75 mg daily Metformin thousand milligrams 3 times daily Carvedilol 6.25 mg p.o. twice daily Atorvastatin 80 mg p.o. nightly Isosorbide mononitrate 60 mg p.o. daily Famotidine 20 mg p.o. twice daily Glimepiride 1 mg p.o. daily Family history: Unobtainable from the patient due to his mental status and likely noncontributory to his acute illness Social history: Active current smoker, at least a half pack a day Unknown EtOH use Per both family and primary set up operator, the patient abuses narcotics. Inpatient Certification: I certify that the inpatient services were ordered in accordance with Medicare regulations governing the order. This includes certification that hospital inpatient services are reasonable and necessary and in the case of services not specified as inpatient-only under 42 CFR 419.22(n), that they are appropriately provided as inpatient services in accordance to with the 2-midnight benchmark under 43 CFR 412.3(e) Estimated Total Length of Stay (Days): 7 Plans for Post Hospital Care: Not yet determined Review of Systems unobtainable due to mental status PMFSH - History History Provided By: Family Member, Medical Record - Medical History Medical History: Medical History (Last Updated 06/03/18 @ 11:17 by Annel Wilks RN) Diabetes Hypertension - Surgical History Surgical History: Surgical History (Last Updated 06/03/18 @ 11:07 by Annel Wilks RN) S/P CABG x 4 - Tobacco History Tobacco Use In Past 30 Days: Yes Smoking Status: Current every day smoker Tobacco Type: Cigarettes - Alcohol History How Often Do You Have a Drink Containing Alcohol: Unable to Obtain - Substance Use History Substance History: Unable to Obtain - Travel History Recent Travel in the [place] Within the Last 8 Weeks: No Recent Travel Out of the Country Within the Last 8 Weeks: No - Immunization History Tetanus Immunization: Unsure Medications and Allergies Active Medications: Active Medications Albuterol (Duoneb Neb (Prn)) 1 ampul NEB Q2HR NEB PRN PRN Reason: WHEEZING Aspirin (Aspirin) 325 mg PO DAILY TIMOTEO Chlorhexidine Gluconate (Chlorhexidine 2% Cloth) 3 pack TOPICAL DAILY@0400 TIMOTEO Stop: 06/09/18 03:59 Chlorhexidine Gluconate (Chlorhexidine 2% Cloth) 3 pack TOPICAL DAILY@0400 PRN PRN Reason: Extra cloth needed Stop: 06/09/18 03:59 Sodium Chloride (Ns Inj) 1,000 mls @ 0 mls/hr IV.SIG .Q0M TIMOTEO Sodium Chloride (Ns Inj) 700 mls @ 0 mls/hr IV.SIG .Q0M TIMOTEO Sodium Chloride (Ns Inj) 1,000 mls @ 0 mls/hr IV.SIG .Q0M TIMOTEO Dobutamine HCl/Dextrose (Dobutamine 250 Mg/250 Ml Premx) 250 mg in 250 mls @ 25.855 mls/hr IV.CONT .Q9H41M TIMOTEO Last Admin: 06/03/18 16:44 Dose: 5 mcg/kg/min, 25.86 mls/hr Heparin Sodium/Dextrose (Heparin/D5w 25,000 U/250 Ml) 25,000 unit in 250 mls @ 16 mls/hr IV.CONT TITRATE PRN; Protocol PRN Reason: Per Protocol Last Admin: 06/03/18 17:06 Dose: 1,600 units/hr, 16 mls/hr Ondansetron HCl (Zofran Odt) 4 mg PO Q6H PRN PRN Reason: NAUSEA OR VOMITING Sodium Chloride (Ns Flush) 2 ml IV.FLUSH BID TIMOTEO Sodium Chloride (Ns Flush) 2 ml IV.FLUSH PRN PRN PRN Reason: FLUSH AFTER USING IV ACCESS Allergies Allergy/AdvReac Type Severity Reaction Status Date / Time No Known Allergies Allergy Unverified 06/03/18 11:07 Home Medications Medication Instructions Recorded Confirmed Type Unable to Obtain Home Meds 06/03/18 06/03/18 History Results - Labs CBC & Chem 7: 06/03/18 11:20 06/03/18 11:20 Labs: Short CBC 06/03/18 Range/Units 11:20 WBC 5.9 (4.0-11.0) th/mm3 Hgb 11.2 L (13.0-17.0) gm/dL Hct 34.8 L (39.0-51.0) % Plt Count 161 (150-450) th/mm3 [facility] 06/03/18 11:20 Sodium 140 Potassium 5.5 H Chloride 103 Carbon Dioxide 28.2 BUN 25 H Creatinine 2.31 H Calcium 8.0 L Cardiac Enzymes 06/03/18 06/03/18 06/03/18 Range/Units 11:20 12:20 12:20 Total Creatine Kinase 274 (39-308) U/L CK-MB (CK-2) 12.7 H (0.5-3.6) ng/mL Troponin I 4.53 H* 5.22 H* (0.02-0.05) ng/mL Liver Function 06/03/18 Range/Units 11:20 Total Bilirubin 0.6 (0.2-1.0) mg/dL AST 513 H (15-37) U/L ALT 389 H (12-78) U/L Alkaline Phosphatase 122 H (45-117) U/L Albumin 2.7 L (3.4-5.0) g/dL Urine 06/03/18 Range/Units 15:04 Urine Color Yellow (Yellw/Straw) Urine Clarity Hazy H (Clear) Urine pH 5.0 (5.0-8.5) Ur Specific [place] 1.018 (1.002-1.035) Urine Protein 30 H (Neg-Trace) mg/dL Urine Glucose (UA) 50 (Negative) mg/dL - Imaging Impressions Chest X-Ray 06/03/18 11:08 CONCLUSION: 1. Heart size is borderline prominent but well compensated. 2. No confluent infiltrate. 3. Suggestion of pleural or diaphragmatic based calcifications in the left base. Head CT 06/03/18 13:18 CONCLUSION: 1. Negative CT Head non contrast. Exam Vital signs: Vital Signs 06/03/18 11:03 06/03/18 11:09 06/03/18 12:38 Temperature 36.7 C Pulse Rate 100 H 86 Respiratory Rate 24 26 H Blood Pressure 130/85 96/54 L Pulse Oximetry 94 L 94 L 97 06/03/18 15:00 06/03/18 15:10 06/03/18 15:15 Temperature Pulse Rate 76 84 88 Respiratory Rate 22 22 21 Blood Pressure 91/53 L 102/59 L 90/51 L Pulse Oximetry 95 96 97 06/03/18 15:30 06/03/18 15:40 06/03/18 16:00 Temperature Pulse Rate 88 90 84 Respiratory Rate 21 23 24 Blood Pressure 96/52 L 135/61 111/57 L Pulse Oximetry 98 06/03/18 17:05 Temperature Pulse Rate Respiratory Rate 22 Blood Pressure Pulse Oximetry Intake & Output 06/02/18 06/03/18 06/03/18 18:59 06:59 18:59 Intake Total 100 / 100 Balance 100 / 100 Weight 86.183 kg Intake: IV 100 / 100 Zosyn 4.5 GM Premix 4.5 gm In 100 / 100 100 ml @ 200 mls/hr IV.SIG ONCE ONE Rx#:[id number] Narrative: GENERAL: Middle-age male who appears older than stated age, lying in bed, somnolent but arousable HEENT: Normocephalic. Atraumatic. Pupils pinpoint, equal, round, reactive, conjugate. Mucous membranes are moist NECK: Trachea is midline. Positive JVD up to about the mid neck. CHEST: Equal chest rise. Nasal cannula oxygen. Unlabored. Slightly bradypneic. CARDIOVASCULAR: Normal rate of 81, regular rhythm. Appears sinus by telemetry. Currently on 5 mcg/kg/min of dobutamine mean arterial pressure has now improved to 71 mmHg. ABDOMEN: Soft, nontender, nondistended. No guarding. MUSCULOSKELETAL: Pulses 2+. No peripheral edema. Extremities are cool and poorly perfused NEUROLOGICAL: RASS -3. Arouses to deep sternal rub. Vigorously protect airway. Purposeful. Moves all extremities. Will follow commands when aroused. Caprini VTE Risk Assessment Caprini VTE Risk Assessment: Moderate/High Risk (score >= 2) Caprini Risk Assessment Model: Point Value = 1 Point Value = 2 Point Value = 3 Point Value = 5 Age 41-60 Minor surgery BMI > 25 kg/m2 Swollen legs Varicose veins or History of unexplained or recurrent spontaneous Oral contraceptives or hormone replacement Sepsis (< 1 month) Serious lung disease, including pneumonia (< 1 month) Abnormal pulmonary function Acute myocardial infarction Congestive heart failure (< 1 month) History of inflammatory bowel disease Medical patient at bed rest Age 61-74 Arthroscopic surgery Major open surgery (> 45 min) Laparoscopic surgery (> 45 min) Malignancy Confined to bed (> 72 hours) Immobilizing plaster cast Central venous access Age >= 75 History of VTE Family history of VTE Factor V Leiden Prothrombin [id number] Lupus anticoagulant Anticardiolipin antibodies Elevated serum homocysteine Heparin-induced thrombocytopenia Other congenital or acquired thrombophilia Stroke (< 1 month) Elective arthroplasty Hip, pelvis, or leg fracture Acute spinal cord injury (< 1 month) Prophylaxis Regimen: Total Risk Factor Score Risk Level Prophylaxis Regimen 0-1 Low Early ambulation 2 Moderate Order ONE of the following: *Sequential Compression Device (SCD) *Heparin 5000 units SQ BID 3-4 Higher Order ONE of the following medications: *Heparin 5000 units SQ TID *Enoxaparin/Lovenox 40 mg SQ daily (WT < 150 kg, CrCl > 30 mL/min) *Enoxaparin/Lovenox 30 mg SQ daily (WT < 150 kg, CrCl > 10-29 mL/min) *Enoxaparin/Lovenox 30 mg SQ BID (WT < 150 kg, CrCl > 30 mL/min) AND/OR *Sequential Compression Device (SCD) 5 or more Highest Order ONE of the following medications: *Heparin 5000 units SQ TID (Preferred with Epidurals) *Enoxaparin/Lovenox 40 mg SQ daily (WT < 150 kg, CrCl > 30 mL/min) *Enoxaparin/Lovenox 30 mg SQ daily (WT < 150 kg, CrCl > 10-29 mL/min) *Enoxaparin/Lovenox 30 mg SQ BID (WT < 150 kg, CrCl > 30 mL/min) AND *Sequential Compression Device (SCD) Assessment and Plan - Assessment and Plan Plan: Assessment: 58-year-old male with a history of ischemic cardiomyopathy as well as prior opiate abuse who presents with acute toxic encephalopathy likely secondary to narcotic and gabapentin overdose as well as multiorgan system dysfunction including acute liver dysfunction, acute kidney injury, acute type II NSTEMI secondary to demand ischemia. Plan by systems: Neurologic: Toxic Encephalopathy Opiate Dependence Opiate overdose Gabapentin overdose - frequent neuro checks - may require naloxone drip - avoid long-acting sedatives - hold home narcotics and gabapentin Respiratory: Acute hypercarbic and hypoxic respiratory failure - repeat abg - wean o2 by nc for goal spo2 > 90% - I.S. - OOB with assist when mental status improves Cardiovascular: Cardiogenic Shock Ischemic cardiomyopathy Type II NSTEMI, elevated troponins - continue dobutamine at 5 mcg/kg/min - trend lactates - heparin drip - ASA - cardiology consult - urgent 2d echo - VQ scan - trend troponins Renal: Acute kidney injury -- Strict I/Os - place jean baptiste - q1h uop - trend on daily bmp FEN/GI: Acute liver dysfunction Hyperkalemia Lactic acidosis - daily cmp - NPO while altered - trend lactates - hepatitis panel Heme/ID: no infectious etiology suspected at this time Endocrine: Diabetes -- SSI Prophylaxis: GI Prophylaxis pepcid DVT Prophylaxis -- SCDs heparin drip Lines: piv jean baptiste Dispo: admit to ICU. critically ill. This patient remains critically ill with one or more organ systems which are or may become a threat to life. I have spent in excess of 79 minutes discontinuously in the care and management of this patient. This time is exclusive of procedures, and includes, but is not limited to, evaluation of the patient, review of the medical record, discussions with family, consultants, nursing staff, or respiratory therapy, and documentation in the medical record.
--- NOTE | 2018-06-03 17:37 | ECHRPT ---
Indication: heart failure CONCLUSIONS Mildly dilated left ventricle. Wall thickness is normal. The left ventricular systolic function is moderately reduced with an estimated ejection fraction in the range of 40-45%. The right ventriclar size is upper limits of normal. The right ventricular systoilc function is moderately decreased. Mitral annular calcification is present. Aortic valve sclerosis is present. Trace aortic valve regurgitation. There is trace tricuspid valve regurgitation. The estimated pulmonary arterial pressure is 52 mmHg. BP: / HR: Rhythm: MEASUREMENTS (Male / Female) Normal Values Technical Quality: 2D ECHO LV Diastolic Diameter PLAX 5.5 cm 4.2 - 5.9 / 3.9 - 5.3 cm LV Systolic Diameter PLAX 4.7 cm IVS Diastolic Thickness 1.1 cm 0.6 - 1.0 / 0.6 - 0.9 cm LVPW Diastolic Thickness 0.6 cm 0.6 - 1.0 / 0.6 - 0.9 cm LV Relative Wall Thickness 0.3 RV Internal Dim ED PLAX 3.1 cm LA Systolic Diameter LX 3.9 cm 3.0 - 4.0 / 2.7 - 3.8 cm M-MODE AV Cusp Separation MM 1.6 cm DOPPLER Mitral E Point Velocity 90.1 cm/s Mitral A Point Velocity 107.0 cm/s Mitral E to A Ratio 0.8 TR Peak Velocity 304.0 cm/s TR Peak Gradient 37.0 mmHg Right Atrial Pressure 15.0 mmHg Pulmonary Artery Systolic Pressu 52.0 mmHg Right Ventricular Systolic Press 52.0 mmHg FINDINGS LEFT VENTRICLE Mildly dilated left ventricle. Wall thickness is normal. The left ventricular systolic function is moderately reduced with an estimated ejection fraction in the range of 40-45%. RIGHT VENTRICLE The right ventriclar size is upper limits of normal. The right ventricular systoilc function is moderately decreased. LEFT ATRIUM The left atrial size is normal. RIGHT ATRIUM The right atrial size is normal. ATRIAL SEPTUM Normal atrial septal thickness without atrial level shunting by limited color doppler interrogation. AORTA The aortic root and proximal ascending aorta are normal in size on limited imaging. MITRAL VALVE Mitral annular calcification is present. AORTIC VALVE Aortic valve sclerosis is present. Trace aortic valve regurgitation. TRICUSPID VALVE There is trace tricuspid valve regurgitation. The estimated pulmonary arterial pressure is 52 mmHg. PULMONARY VALVE No pulmonary valve regurgitation or stenosis. VESSELS The inferior vena cava is normal in size. PERICARDIUM No pericardial effusion. Ramon Lainez MD, FACC, FSCAI (Electronically Signed) Final Date:03 June 2018 17:36
--- NOTE | 2018-06-03 18:29 | NM ---
EXAM DATE: 06/03/2018 6:25 PM EDT AGE/SEX: 89 years / Male INDICATIONS: Dyspnea CLINICAL DATA: This is the patient's initial encounter. Patient reports that signs and symptoms have been present for 1 day and indicates a pain score of 0/10. MEDICAL/SURGICAL HISTORY: Diabetes mellitus type II. Hypertension. CABG. COMPARISON: [facility], CHEST 1V SINGLE AP, 06/03/2018. . DOSE: 1.3 mCi Tc99m DTPA aerosol 8.1 mCi Tc99m MAA IV TECHNIQUE: Following five minutes of tidal breathing of DTPA aerosol, planar images of the lungs wer e performed in eight projections. The patient was then injected with MAA, and eight-view perfusion s can was performed. FINDINGS: There is a homogeneous pattern of aerosol delivery to the periphery of both lungs. No focal ventilat ory defects are seen. There is moderate central deposition of aerosol in the upper lobes bilaterally suggesting obstructive airways disease. The perfusion lung scan demonstrates a homogenous pattern of uptake in both lungs. No segmental or s ubsegmental defects are seen. CONCLUSION: 1. Low probability pulmonary embolism. Electronically signed by: Mikel Greene MD 06/03/2018 6:27 PM EDT
--- NOTE | 2018-06-03 18:39 | ECG ---
Date Performed: 06/03/2018 Time Performed: 11:02:18 PTAGE: 89 years EKG: Sinus rhythm POSSIBLE INFERIOR MYOCARDIAL INFARCTION ST DEVIATION AND MODERATE T-WAVE ABNORMALITY, CONSIDER ANTER OLATERAL ISCHEMIA ABNORMAL ECG NO PREVIOUS TRACING DOCTOR: Daren Jon Interpretating Date/Time 06/03/2018 18:37:47
[2018-06-03] MEDS ORDERED: Dextrose 50% in Water Syringe 50 ML ONE (18:41)
[2018-06-03] MEDS ORDERED: Naloxone Inj 0.4 MG/ML Vial IV.PUSH ONE (18:41)
[2018-06-03 21:16] LABS: Hepatitits B Surface Antigen Nonreactive (Nonreactive)
[2018-06-03 21:44] LABS: Hepatitis A IgM Antibody Nonreactive (Nonreactive)
[2018-06-04 02:28] LABS: Hematocrit 35.2 % (39.0-51.0); Hemoglobin 11.3 gm/dL (13.0-17.0); Mean Corpuscular HGB Conc 32.2 % (32.0-36.0); Mean Corpuscular Hemoglobin 33.4 pg (27.0-34.0); Mean Corpuscular Volume 103.8 fL (80.0-100.0); Mean Platelet Volume 8.8 fL (7.0-11.0); Platelet Count 129 th/mm3 (150-450); Red Blood Count 3.39 mil/mm3 (4.50-5.90); White Blood Count 6.7 th/mm3 (4.0-11.0)
[2018-06-04 02:36] LABS: INR 1.1 Ratio; Prothrombin Time 11.2 sec (9.8-11.6)
[2018-06-04 03:17] LABS: Alanine Aminotransferase 597 U/L (12-78); Albumin 2.8 g/dL (3.4-5.0); Anion Gap 3 meq/L (5-15); Aspartate Aminotransferase 688 U/L (15-37); Blood Urea Nitrogen 23 mg/dL (7-18); Calcium 7.9 mg/dL (8.5-10.1); Carbon Dioxide 34.5 meq/L (21.0-32.0); Chloride 103 meq/L (98-107); Glomerular Filtration Rate 63 mL/min (>89); Glucose,Random 76 mg/dL (74-106); Potassium 4.5 meq/L (3.5-5.1); Sodium 140 meq/L (136-145)
[2018-06-04 03:21] LABS: Alkaline Phosphatase 112 U/L (45-117); Total Protein 5.7 g/dL (6.4-8.2)
[2018-06-04] MEDS: DOBUTamine 250 MG/250 ML Premx 250 MG/250 ML BAG IV.CONT SCH ×3 (03:27→17:18)
[2018-06-04 03:34] LABS: Troponin I 7.01 ng/mL (0.02-0.05)
[2018-06-04] MEDS ORDERED: Chlorhexidine Gluconate 2% 1 Pack (2 Cloths) TOPICAL PRN (04:00)
[2018-06-04 05:08] LABS: Amphetamine Urine With Conf Neg (Neg); Benzodiazepine Urine With Conf Neg (Neg)
[2018-06-04] MEDS: Chlorhexidine Gluconate 2% 1 Pack (2 Cloths) TOPICAL SCH (05:22)
--- NOTE | 2018-06-04 08:02 | MB ---
cc: Gilma Sky MD DATE: 06/03/2018 AKA: SHAVONNE [id number] REASON FOR CONSULTATION: Mental status changes. HISTORY OF PRESENT ILLNESS: This is a middle-aged gentleman who comes in as a Shavonne Castro. Limited history. Found altered, given some Narcan with questionable improvement. Found to have elevated troponin and LFTs. There is some question of him taking some pain medications as well as high-dose gabapentin. The patient is currently moved into the cardiac ICU. PAST MEDICAL HISTORY: All we can gather from is hypertension, diabetes and bypass surgery. ALLERGIES: Unknown. MEDICATIONS: Unknown. PHYSICAL EXAMINATION: VITAL SIGNS: Temperature is 98, heart rate 88, respiratory rate 21, blood pressure 90/51, saturating at 97% on 2 liters nasal cannula. NECK: Supple. I do not appreciate any bruits. HEART: Regular. PULMONARY: Lungs appear clear. NEUROLOGIC: He is lethargic, minimally opens his eyes, then turns away. Does not let you open his eyes, but we did have pupils at 2 mm, sluggish. No gaze deviation. Face looks symmetrical. He is nonverbal. He grimaces to pain, withdraws in all 4 extremities. He does have what looks like some myoclonus, increased tone, but some of it is due to the patient's resistance to exam. Nonverbal, not oriented. LABORATORY DATA: Reviewed. UDS is negative. Ethanol level less than 3. CBC: White count 5.9, hemoglobin 11.2, MCV 105.1, platelets 161,000. Coagulation panel: PTT 23.9. His blood gas shows a pH of 7.24, pCO2 75, pCO2 of 31, with a bicarbonate of 31. His chemistries: Potassium 5.5, BUN 25, creatinine 2.31, GFR 24, glucose 115. Lactic acid 2.3 and 2.4 respectively. AST 513, ALT 389, alkaline phosphatase 122. Troponin 4.53 and 5.22 respectively. CK-MB (2) 12.7. Total CPK 274, albumin 2.7. Urine hazy, 30 protein, few mucus. Culture not indicated. Tox screen, as stated, was negative. IMAGING STUDIES: He did have a CT of the brain upon admission, without any acute findings, negative. Chest x-ray, borderline prominent heart size, no infiltrate. IMPRESSION: Change in mental status. PLAN: 1. Change in mental status, etiology, questionable substance use, unknown at this time, but UDS was negative. 2. Elevated transaminases, may be medicine effect. 3. Non-ST myocardial infarction seems on repeat CT per chart notes. CT, as stated, was unremarkable of the brain. Recommend getting an EEG. Continue care per the action installer. At some point in time, if he is stable, consider an MRI brain, but at this point, a CT is unremarkable. I believe he is going to have a V/Q scan. I will go ahead and put in the EEG and their recommendations will be made accordingly. From a neurological perspective, continue hydration, continue care per the action installer as outlined, as well as traveling electrician. MD DIAMOND Mario/CHRIS , 04:57 PM , 05:27 PM
[2018-06-04] MEDS: Aspirin 325 MG Tablet PO SCH (09:01)
--- NOTE | 2018-06-04 10:35 | ECG ---
Date Performed: 06/03/2018 Time Performed: 12:33:25 PTAGE: 89 years EKG: Sinus rhythm PROBABLE INFERIOR MYOCARDIAL INFARCTION MODERATE T-WAVE ABNORMALITY, CONSIDER ANTEROLATERAL ISCHEMIA ABNORMAL ECG PREVIOUS TRACING : 06/03/2018 11.02 Since the previous tracing, no significant change noted DOCTOR: Eri Simpson Interpretating Date/Time 06/04/2018 10:34:30
--- NOTE | 2018-06-04 12:14 | P.PNCA ---
Subjective Interval history: assymptomatic, lucid in nad Physical Exam Vital signs: Vital Signs 06/03/18 12:38 06/03/18 15:00 06/03/18 15:10 Temperature Pulse Rate 86 76 84 Respiratory Rate 26 H 22 22 Blood Pressure 96/54 L 91/53 L 102/59 L Pulse Oximetry 97 95 96 06/03/18 15:15 06/03/18 15:30 06/03/18 15:40 Temperature Pulse Rate 88 88 90 Respiratory Rate 21 21 23 Blood Pressure 90/51 L 96/52 L 135/61 Pulse Oximetry 97 06/03/18 16:00 06/03/18 17:00 06/03/18 17:05 Temperature 97.6 F Pulse Rate 84 104 H Respiratory Rate 24 24 22 Blood Pressure 111/57 L 109/73 Pulse Oximetry 98 97 06/03/18 18:00 06/03/18 19:00 06/03/18 20:00 Temperature 99.3 F Pulse Rate 85 91 H Respiratory Rate 18 22 Blood Pressure 86/58 L 75/50 L Pulse Oximetry 93 L 98 93 L 06/03/18 23:00 06/04/18 03:00 06/04/18 07:00 Temperature 97.5 F L 98 F 98.1 F Pulse Rate 95 H 98 H 93 H Respiratory Rate 20 20 22 Blood Pressure 91/60 L 120/71 125/77 Pulse Oximetry 99 96 99 06/04/18 08:00 06/04/18 08:15 06/04/18 10:29 Temperature Pulse Rate 96 H Respiratory Rate Blood Pressure Pulse Oximetry 99 93 L 97 Intake & Output 06/03/18 06/04/18 06/04/18 18:59 06:59 18:59 Intake Total 100 / 100 1140 / 1140 250 / 250 Output Total 1000 / 1000 Balance 100 / 100 140 / 140 250 / 250 Weight 86.183 kg Intake: IV 100 / 100 500 / 500 250 / 250 DOBUTamine 250 MG/250 ML Premx 500 / 500 250 / 250 250 mg In 250 ml @ 10 MCG/KG/ MIN 51.71 mls/hr IV.CONT . Q9H41M [facility] Rx#:[id number] Zosyn 4.5 GM Premix 4.5 gm In 100 / 100 100 ml @ 200 mls/hr IV.SIG ONCE ONE Rx#:[id number] Oral 640 / 640 Output: Urine 1000 / 1000 - Urinary Catheter Management Indwelling Urethral Catheter Cath placed during this visit: yes Reason for continuing: Hourly intake/output Insertion date: 06/03/18 Insertion time: 14:48 Assessment and Plan - Assessment (1) CAD (coronary artery disease) Code(s): I25.10 - Atherosclerotic heart disease of [place] coronary artery without angina pectoris Status: Acute (2) Altered mental status Code(s): R41.82 - Altered mental status, unspecified Status: Acute (3) JESUS (acute kidney injury) Code(s): N17.9 - Acute kidney failure, unspecified Status: Acute (4) Opiate overdose Code(s): T40.601A - Poisoning by unspecified narcotics, accidental ( unintentional), initial encounter Status: Acute (5) Acute hyperkalemia Code(s): E87.5 - Hyperkalemia Status: Acute (6) Non-ST elevation (NSTEMI) myocardial infarction Code(s): I21.4 - Non-ST elevation (NSTEMI) myocardial infarction Status: Acute - Plan 1.) CAD - NSTEMI, d/w Dr Cleveland who d/w patient's mobile health vehicle operator in [place], patient has icm with occluded lad, suspect patient became hypotensive from narcotic overdose and leaked troponin from chronic ischemic heart disease; he is assymptomatic, rec continue medical management, ok to transfer to [facility] (2) Altered mental status Qualifiers: Altered mental status type: somnolence Qualified Code(s): R40.0 - Somnolence (4) Opiate overdose Qualifiers: Encounter type: initial encounter Injury intent: accidental or unintentional Qualified Code(s): T40.601A - Poisoning by unspecified narcotics, accidental ( unintentional), initial encounter
--- NOTE | 2018-06-04 13:12 | P.PNCC ---
Subjective Subjective Remarks/Hospital Course: Hospital Course: History of present illness: This is a 58-year-old male with a history of ischemic cardiomyopathy and EF of 30-35% with the last echo on 05/12/2018. He is visiting down from his home in [place] when he was found this morning by his family acutely altered. He was brought into the emergency department where he had pinpoint pupils and was given 2 mg of Narcan IV, at which point he woke up and began following commands. The patient takes 10 mg of OxyContin at home every 12 hours as well as 400 mg of gabapentin 3 times daily. His family is concerned that he may be abusing these medications. The patient is arousable, but somnolent and unable to provide any additional history. He denies taking extra or abusing any of these medications, although he does state to me "maybe I take an extra gabapentin ". Additionally, he was hypotensive in the emergency department not responsive to 2 L crystalloid fluid bolus. His labs are pertinent for creatinine of 2.3 with a baseline of 0.8 back in 03/2018. Initial troponin was 4.5 which misha to 5.2. EKG is significant for inferior Q waves as well as lateral ST depressions with T-wave inversions. Potassium is 5.5. Lactate was initially 2.3 which did not clear and is persistently 2.4 despite volume resuscitation. While I was evaluating the patient, I performed bedside critical care echocardiography which demonstrated a moderately depressed LVEF, moderate to severely depressed right ventricular function, a 2.4 cm dilated IVC without any respiratory variation, no pericardial effusion. I placed the patient on dobutamine at 5 mcg/kg/min with some improvement in his blood pressure. Of note, the patient recently had an ER visit here back in March 2018 where he had leg swelling with a mildly elevated BNP in the 200s and was sent home with additional Lasix. Patient is not on anticoagulation. The family states that he has not complained of shortness of breath, dyspnea on exertion. Chest pain, abdominal pain, or any other symptoms. The family does state that he recently lost his 6 months ago and they have all been worried about his mental condition since that time and have been trying to "cheer him up ". I discussed the case with his primary lip cutter and scorer Dr. Ash Montaño from [facility] whose office phone number is [phone]. He states the patient has a long history of poor compliance. Has known ischemic cardiomyopathy. Last left heart catheterization was September 2016 where the patient had a chronically 100% occluded LAD, 90% ostial circumflex lesion, chronically occluded RCA, and at that time and acutely occluded reverse saphenous vein graft to a distal obtuse marginal which was successfully stented at that time in 2015. Recent transthoracic echocardiogram in 05/12/2018 demonstrated EF of 30-35%, no regional wall motion abnormalities, mildly dilated and mildly dysfunctional RV. His lip cutter and scorer states that he was recently admitted less than a week ago in [place] with a BNP of 1580. Dr. Montaño also states that the patient often takes additional narcotic pain medication, this is been a concern of his for many years. Patient has been a candidate for an AICD in the past, but has been noncompliant with a LifeVest, which the patient recently received again less than a month ago, but is not currently wearing. Dr. Montaño feels that the patient is not compliant enough to be a good candidate for AICD therapy. Subjective: 06/04: clinically improving. off narcan drip. awake and alert. denies complaints. remains on dobutamine at 8 mcg/kg/min. I had a long talk with Mr. Pope and explained that it appears he has overdosed on oxycodone and gabapentin. he denies intentionally taking this medication and vigorously denies any suicidal ideations. He does state that he is out of these medicines now. I explained to the patient that given the risk of side-effects from these medications, including respiratory failure and organ dysfunction which he has experienced means that he is no longer a good candidate for opiate/narcotic pain therapies, and at this point I would also recommend against gabapentin therapy as well. I also had a long discussion with the patient's two adult children who agree with me that they do not think his opiate medication or gabapentin are safe options anymore for his pain. Objective Vital Signs / I&O: Vital Signs 06/03/18 15:00 06/03/18 15:10 06/03/18 15:15 Temperature Pulse Rate 76 84 88 Respiratory Rate 22 22 21 Blood Pressure 91/53 L 102/59 L 90/51 L Pulse Oximetry 95 96 97 06/03/18 15:30 06/03/18 15:40 06/03/18 16:00 Temperature Pulse Rate 88 90 84 Respiratory Rate 21 23 24 Blood Pressure 96/52 L 135/61 111/57 L Pulse Oximetry 98 06/03/18 17:00 06/03/18 17:05 06/03/18 18:00 Temperature 36.4 C Pulse Rate 104 H 85 Respiratory Rate 24 22 18 Blood Pressure 109/73 86/58 L Pulse Oximetry 97 93 L 06/03/18 19:00 06/03/18 20:00 06/03/18 23:00 Temperature 37.4 C 36.4 C L Pulse Rate 91 H 95 H Respiratory Rate 22 20 Blood Pressure 75/50 L 91/60 L Pulse Oximetry 98 93 L 99 06/04/18 03:00 06/04/18 07:00 06/04/18 08:00 Temperature 36.6 C 36.7 C Pulse Rate 98 H 93 H 96 H Respiratory Rate 20 22 Blood Pressure 120/71 125/77 Pulse Oximetry 96 99 99 06/04/18 08:15 06/04/18 10:29 06/04/18 11:00 Temperature 36.5 C Pulse Rate 88 Respiratory Rate 24 Blood Pressure 144/88 H Pulse Oximetry 93 L 97 98 06/04/18 12:00 Temperature Pulse Rate 84 Respiratory Rate Blood Pressure Pulse Oximetry Intake & Output 06/03/18 06/04/18 06/04/18 18:59 06:59 18:59 Intake Total 100 / 100 1140 / 1140 250 / 250 Output Total 1000 / 1000 Balance 100 / 100 140 / 140 250 / 250 Weight 86.183 kg Intake: IV 100 / 100 500 / 500 250 / 250 DOBUTamine 250 MG/250 ML Premx 500 / 500 250 / 250 250 mg In 250 ml @ 10 MCG/KG/ MIN 51.71 mls/hr IV.CONT . Q9H41M [facility] Rx#:[id number] Zosyn 4.5 GM Premix 4.5 gm In 100 / 100 100 ml @ 200 mls/hr IV.SIG ONCE ONE Rx#:[id number] Oral 640 / 640 Output: Urine 1000 / 1000 Result Diagrams: 06/04/18 02:02 06/04/18 02:02 Objective Remarks: gen: middle-aged male who appears older than stated age, lying in bed, awake and alert. heent: perrl. mmm. neck: no jvd. trachea midline. chest: unlabored. nc o2. cv: NRRR. sinus. on dobutamine at 8 mcg/kg/min. abd: soft, nontender,nondistended. no guarding. extr: no edema. distal pulses 2+. neuro: RASS 0. GCS 15. follows commands. awake, alert. Assessment and Plan - Assessment and Plan Plan: Assessment: 58-year-old male with a history of ischemic cardiomyopathy as well as prior opiate abuse who presents with acute toxic encephalopathy likely secondary to narcotic and gabapentin overdose as well as multiorgan system dysfunction including acute liver dysfunction, acute kidney injury, acute type II NSTEMI secondary to demand ischemia. His organ dysfunction is improving. I will discuss his care with his Pain doctor (Dr. Haroldo Blake, Jr [phone]). He has failed narcotic and gabapentin pain therapy and given its life- threatening side-effects, I do not think these are safe therapies for him at this time. Plan by systems: Neurologic: Toxic Encephalopathy- resolved Opiate Dependence Opiate overdose Gabapentin overdose Chronic pain Possible opiate withdraw - s/p narcan drip - avoid long-acting sedatives - no longer a candidate for opiate/narcotic or gabapentin therapy. high abuse potential. - tylenol 500mg q6h (hepatic dosing) for pain - could consider tramadol in low dose if absolutely necessary for pain - lidocaine patches are good option for areas of musculoskeletal pain If blood pressure tolerates, could consider clonidine, but at this point his heart failure regimen is more important than clonidine to restart once bp improves. - Imodium prn for abdominal cramping or diarrhea associated with opiate withdraws. Respiratory: Acute hypercarbic and hypoxic respiratory failure- resolved - wean o2 by nc for goal spo2 > 90% - I.S. - OOB with assist Cardiovascular: Cardiogenic Shock- resolving. Ischemic cardiomyopathy, EF 30-35% Type II NSTEMI, elevated troponins - wean dobutamine off -lactate cleared. - d/c heparin drip - ASA - discussed with Dr. Lainez: will monitor conservatively. most likely type II from demand ischemia. currently chest pain free. Renal: Acute kidney injury- improving. -- Strict I/Os - d/c je[facility]iste - trend on daily bmp FEN/GI: Acute liver dysfunction- resolving. Hyperkalemia- resolved Lactic acidosis- resolved. - daily cmp - advance diet. Heme/ID: no infectious etiology suspected at this time Endocrine: Diabetes -- SSI Prophylaxis: GI Prophylaxis pepcid DVT Prophylaxis -- SCDs d/c heparin drip. SQH. Lines: [facility] Dispo: once off dobutamine can d/c out of ICU. Dr. Montaño has agreed to see him in clinic upon return to [place]. If his organ function continues to improve as I suspect it will, he likely can be safely discharged as early as tomorrow to follow up within a week with Dr. Blake and Dr. Montaño. I have discussed this with his family who agree with this plan and will help coordinate his medical care in [place].
[2018-06-04] MEDS ORDERED: Loperamide 2 MG Capsule PO PRN (13:13)
[2018-06-04 13:25] LABS: Troponin I 4.57 ng/mL (0.02-0.05)
[2018-06-04] MEDS: Heparin - SQ 10,000 UNITS/ML Vial SQ SCH ×2 (16:18→23:00)
[2018-06-04] MEDS: Furosemide 40 MG Tablet PO SCH (19:04)
[2018-06-05 04:25] LABS: Hematocrit 35.5 % (39.0-51.0); Hemoglobin 11.9 gm/dL (13.0-17.0); Mean Corpuscular HGB Conc 33.4 % (32.0-36.0); Mean Corpuscular Hemoglobin 33.8 pg (27.0-34.0); Mean Corpuscular Volume 101.2 fL (80.0-100.0); Platelet Count 147 th/mm3 (150-450); Red Blood Count 3.51 mil/mm3 (4.50-5.90); Red Cell Distribution Width 14.1 % (11.6-17.2)
[2018-06-05 04:57] LABS: Alanine Aminotransferase 871 U/L (12-78); Alkaline Phosphatase 112 U/L (45-117); Anion Gap 7 meq/L (5-15); Aspartate Aminotransferase 698 U/L (15-37); Blood Urea Nitrogen 17 mg/dL (7-18); Calcium 8.8 mg/dL (8.5-10.1); Carbon Dioxide 33.1 meq/L (21.0-32.0); Chloride 100 meq/L (98-107); Glomerular Filtration Rate Greater Than 89 mL/min (>89); Glucose,Random 102 mg/dL (74-106); Potassium 4.4 meq/L (3.5-5.1); Sodium 140 meq/L (136-145); Total Protein 6.3 g/dL (6.4-8.2)
[2018-06-05] MEDS: Heparin - SQ 10,000 UNITS/ML Vial SQ SCH ×3 (06:08→21:51)
[2018-06-05] MEDS: Chlorhexidine Gluconate 2% 1 Pack (2 Cloths) TOPICAL SCH (06:34)
--- NOTE | 2018-06-05 07:16 | MG ---
cc: Lucius Li MD DATE OF STUDY: 06/04/2018 EEG RECORD NUMBER: [id number] DESCRIPTION OF RECORD: A 4-5 Hz activity, 20-50 microvolts occurring in a generalized fashion with EEG variability and reactivity. There are tiny sharp transients and frontal myogenic artifact at times. Reduced driving with photic stimulation. INTERPRETATION: Mild encephalopathy. Clinical correlation. Lucius Li MD MG/DEAN , 07:03 AM , 07:15 AM
[2018-06-05] MEDS: Acetaminophen 500 MG Tablet PO PRN ×2 (08:47→21:50)
[2018-06-05] MEDS: Furosemide 40 MG Tablet PO SCH ×2 (09:04→17:30)
[2018-06-05] MEDS: Aspirin 325 MG Tablet PO SCH (09:05)
[2018-06-05] MEDS: Ramipril 2.5 MG Capsule PO SCH (12:29)
--- NOTE | 2018-06-05 12:56 | P.PNCA ---
Subjective Interval history: assymptomatic in nad Physical Exam Vital signs: Vital Signs 06/04/18 15:00 06/04/18 16:00 06/04/18 19:15 Temperature 97.7 F 98.6 F Pulse Rate 88 88 79 Respiratory Rate 20 18 Blood Pressure 138/92 H 138/88 Pulse Oximetry 97 98 06/04/18 20:00 06/04/18 23:00 06/05/18 03:00 Temperature 97.9 F 98.3 F Pulse Rate 78 87 Respiratory Rate 22 Blood Pressure 134/81 126/92 H Pulse Oximetry 97 98 98 06/05/18 07:00 06/05/18 08:00 06/05/18 08:10 Temperature 98.0 F Pulse Rate 78 Respiratory Rate 24 Blood Pressure 149/94 H Pulse Oximetry 95 97 06/05/18 11:00 Temperature 98.7 F Pulse Rate 80 Respiratory Rate 20 Blood Pressure 158/96 H Pulse Oximetry Intake & Output 06/04/18 06/05/18 06/05/18 18:59 06:59 18:59 Intake Total 1050 / 1050 300 / 300 360 / 360 Output Total 1230 / 1230 1300 / 1300 Balance -180 / -180 -1000 / -1000 360 / 360 Intake: IV 250 / 250 DOBUTamine 250 MG/250 ML Premx 250 / 250 250 mg In 250 ml @ 10 MCG/KG/ MIN 51.71 mls/hr IV.CONT . Q9H41M [facility] Rx#:[id number] Oral 800 / 800 300 / 300 360 / 360 Output: Urine 1300 / 1300 Urine Amount (Catheter) 1230 / 1230 Indwelling Urethral Catheter 1230 / 1230 Other: # Voids 5 Date of Last Bowel Movement 06/04/18 06/04/18 06/04/18 # Bowel Movements 1 - Urinary Catheter Management Indwelling Urethral Catheter Cath placed during this visit: yes, but has since been removed by the nurse Reason for continuing: Other continuation reason Insertion date: 06/03/18 Insertion time: 14:48 Removal date: 06/04/18 Removal time: 18:15 Assessment and Plan - Assessment (1) CAD (coronary artery disease) Code(s): I25.10 - Atherosclerotic heart disease of [place] coronary artery without angina pectoris Status: Acute (2) Altered mental status Code(s): R41.82 - Altered mental status, unspecified Status: Acute (3) JESUS (acute kidney injury) Code(s): N17.9 - Acute kidney failure, unspecified Status: Acute (4) Opiate overdose Code(s): T40.601A - Poisoning by unspecified narcotics, accidental ( unintentional), initial encounter Status: Acute (5) Acute hyperkalemia Code(s): E87.5 - Hyperkalemia Status: Acute (6) Non-ST elevation (NSTEMI) myocardial infarction Code(s): I21.4 - Non-ST elevation (NSTEMI) myocardial infarction Status: Acute - Plan 1.) CAD - NSTEMI, d/w Dr Cleveland who d/w patient's infant toddler lead teacher in [place], patient has icm with occluded lad, suspect patient became hypotensive from narcotic overdose and leaked troponin from chronic ischemic heart disease; he is assymptomatic, rec continue medical management, [facility], plan plain exercise treadmill test to [facility], d/w patient, nurse and Dr Quiñones (2) Altered mental status Qualifiers: Altered mental status type: somnolence Qualified Code(s): R40.0 - Somnolence (4) Opiate overdose Qualifiers: Encounter type: initial encounter Injury intent: accidental or unintentional Qualified Code(s): T40.601A - Poisoning by unspecified narcotics, accidental ( unintentional), initial encounter
--- NOTE | 2018-06-05 16:54 | P.PNIM ---
Subjective Interval history: History of present illness: This is a 58-year-old male with a history of ischemic cardiomyopathy and EF of 30-35% with the last echo on 05/12/2018. He is visiting down from his home in [place] when he was found this morning by his family acutely altered. He was brought into the emergency department where he had pinpoint pupils and was given 2 mg of Narcan IV, at which point he woke up and began following commands. The patient takes 10 mg of OxyContin at home every 12 hours as well as 400 mg of gabapentin 3 times daily. His family is concerned that he may be abusing these medications. The patient is arousable, but somnolent and unable to provide any additional history. He denies taking extra or abusing any of these medications, although he does state to me "maybe I take an extra gabapentin ". Additionally, he was hypotensive in the emergency department not responsive to 2 L crystalloid fluid bolus. His labs are pertinent for creatinine of 2.3 with a baseline of 0.8 back in 03/2018. Initial troponin was 4.5 which misha to 5.2. EKG is significant for inferior Q waves as well as lateral ST depressions with T-wave inversions. Potassium is 5.5. Lactate was initially 2.3 which did not clear and is persistently 2.4 despite volume resuscitation. While I was evaluating the patient, I performed bedside critical care echocardiography which demonstrated a moderately depressed LVEF, moderate to severely depressed right ventricular function, a 2.4 cm dilated IVC without any respiratory variation, no pericardial effusion. I placed the patient on dobutamine at 5 mcg/kg/min with some improvement in his blood pressure. Of note, the patient recently had an ER visit here back in March 2018 where he had leg swelling with a mildly elevated BNP in the 200s and was sent home with additional Lasix. Patient is not on anticoagulation. The family states that he has not complained of shortness of breath, dyspnea on exertion. Chest pain, abdominal pain, or any other symptoms. The family does state that he recently lost his 6 months ago and they have all been worried about his mental condition since that time and have been trying to "cheer him up ". I discussed the case with his primary cash control specialist Dr. Ash Montaño from [facility] whose office phone number is [phone]. He states the patient has a long history of poor compliance. Has known ischemic cardiomyopathy. Last left heart catheterization was September 2016 where the patient had a chronically 100% occluded LAD, 90% ostial circumflex lesion, chronically occluded RCA, and at that time and acutely occluded reverse saphenous vein graft to a distal obtuse marginal which was successfully stented at that time in 2015. Recent transthoracic echocardiogram in 05/12/2018 demonstrated EF of 30-35%, no regional wall motion abnormalities, mildly dilated and mildly dysfunctional RV. His cash control specialist states that he was recently admitted less than a week ago in [place] with a BNP of 1580. Dr. Montaño also states that the patient often takes additional narcotic pain medication, this is been a concern of his for many years. Patient has been a candidate for an AICD in the past, but has been noncompliant with a LifeVest, which the patient recently received again less than a month ago, but is not currently wearing. Dr. Montaño feels that the patient is not compliant enough to be a good candidate for AICD therapy. Subjective: 06/04: clinically improving. off narcan drip. awake and alert. denies complaints. remains on dobutamine at 8 mcg/kg/min. I had a long talk with Mr. Pope and explained that it appears he has overdosed on oxycodone and gabapentin. he denies intentionally taking this medication and vigorously denies any suicidal ideations. He does state that he is out of these medicines now. I explained to the patient that given the risk of side-effects from these medications, including respiratory failure and organ dysfunction which he has experienced means that he is no longer a good candidate for opiate/narcotic pain therapies, and at this point I would also recommend against gabapentin therapy as well. I also had a long discussion with the patient's two adult children who agree with me that they do not think his opiate medication or gabapentin are safe options anymore for his pain. Discussed the case with Dr. Blake: patient has had a prior +UDS for alcohol and patient was counseled that misuse of alcohol + narcotics was a violation of his opiate agreement with pain clinic. He agrees that the patient has failed opiate therapy and gabapentin therapy. Dr. Blake will request medical records for this hospital visit and address a new pain plan with the patient when he travels back to [place]. Dr. Blake also stated they have psychiatric resources that he will make available and will be a mandatory part of the pain plan going forward. 06-05 TRANSFERRED TO OUR SERVICE TODAY CONSIDERING LEAVING THE HOSPITAL DR BROWN WILL DO CARDIAC CATH ON THURSDAY NO NEW COMPLAINTS AT THIS TIME DW RN AND PT AM LABS TRANSFER OUT OF ICU Physical Exam Vital signs: Vital Signs 06/04/18 19:15 06/04/18 20:00 06/04/18 23:00 Temperature 98.6 F 97.9 F Pulse Rate 79 78 Respiratory Rate 18 22 Blood Pressure 138/88 134/81 Pulse Oximetry 98 97 98 06/05/18 03:00 06/05/18 07:00 06/05/18 08:00 Temperature 98.3 F 98.0 F Pulse Rate 87 78 Respiratory Rate 24 Blood Pressure 126/92 H 149/94 H Pulse Oximetry 98 95 06/05/18 08:10 06/05/18 11:00 06/05/18 15:00 Temperature 98.7 F 98.5 F Pulse Rate 80 68 Respiratory Rate 20 20 Blood Pressure 158/96 H 156/103 H Pulse Oximetry 97 Intake & Output 06/04/18 06/05/18 06/05/18 18:59 06:59 18:59 Intake Total 1050 / 1050 300 / 300 360 / 360 Output Total 1230 / 1230 1300 / 1300 Balance -180 / -180 -1000 / -1000 360 / 360 Intake: IV 250 / 250 DOBUTamine 250 MG/250 ML Premx 250 / 250 250 mg In 250 ml @ 10 MCG/KG/ MIN 51.71 mls/hr IV.CONT . [id number] [facility] Rx#:[id number] Oral 800 / 800 300 / 300 360 / 360 Output: Urine 1300 / 1300 Urine Amount (Catheter) 1230 / 1230 Indwelling Urethral Catheter 1230 / 1230 Other: # Voids 5 Date of Last Bowel Movement 06/04/18 06/04/18 06/04/18 # Bowel Movements 1 Narrative: GENERAL: AWAKE ALERT AND ORIENTED X3 TALKATIVE AND COOPERATIVE-- SKIN: Warm and dry. HEAD: Atraumatic. Normocephalic. EYES: Pupils equal and round. No scleral icterus. No injection or drainage. ENT: No nasal bleeding or discharge. Mucous membranes pink and moist. NECK: Trachea midline. No JVD. CARDIOVASCULAR: Regular rate and rhythm. S1, S2 NO S3 OR S4 RESPIRATORY: No accessory muscle use. COARSE BREATH SOUNDS Breath sounds equal bilaterally. GASTROINTESTINAL: Abdomen soft, non-tender, nondistended. Hepatic and splenic margins not palpable. MUSCULOSKELETAL: Extremities without clubbing, cyanosis, or edema. No obvious deformities. NEUROLOGICAL: Awake and alert. No obvious cranial nerve deficits. Motor grossly within normal limits. Five out of 5 muscle strength in the arms and legs. Normal speech. PSYCHIATRIC: INAppropriate mood and affect; insight and judgment ABnormal. - Urinary Catheter Management Indwelling Urethral Catheter Cath placed during this visit: yes, but has since been removed by the nurse Reason for continuing: Other continuation reason Insertion date: 06/03/18 Insertion time: 14:48 Removal date: 06/04/18 Removal time: 18:15 Results - Labs CBC & Chem 7: 06/05/18 03:37 06/05/18 03:37 Laboratory Results - last 24 hr 06/04/18 06/04/18 06/05/18 18:22 18:32 00:50 WBC RBC Hgb Hct MCV MCH MCHC RDW Plt Count MPV Sodium Potassium Chloride Carbon Dioxide Anion Gap BUN Creatinine Estimated GFR POC Glucose 169 H Random Glucose Calcium Total Bilirubin AST ALT Alkaline Phosphatase Troponin I 4.01 H* 4.80 H* Total Protein Albumin 06/05/18 06/05/18 06/05/18 03:37 03:37 09:18 WBC 6.0 RBC 3.51 L Hgb 11.9 L Hct 35.5 L MCV 101.2 H MCH 33.8 MCHC 33.4 RDW 14.1 Plt Count 147 L MPV 9.0 Sodium 140 Potassium 4.4 Chloride 100 Carbon Dioxide 33.1 H Anion Gap 7 BUN 17 Creatinine 0.86 Estimated GFR Greater than 89 POC Glucose 145 H Random Glucose 102 Calcium 8.8 D Total Bilirubin 0.6 AST 698 H ALT 871 H Alkaline Phosphatase 112 Troponin I Total Protein 6.3 L D Albumin 3.0 L Microbiology 06/03/18 11:20 Blood - Peripheral Aerobic Blood Culture - Preliminary No growth in 2 days 06/03/18 11:20 Blood - Peripheral Anaerobic Blood Culture - Preliminary No growth in 2 days 06/03/18 11:20 Blood - Peripheral Aerobic Blood Culture - Preliminary No growth in 2 days 06/03/18 11:20 Blood - Peripheral Anaerobic Blood Culture - Preliminary No growth in 2 days - Imaging Pulmonary Perfusion Imaging 06/03/18 00:00 CONCLUSION: 1. Low probability pulmonary embolism. Chest X-Ray 06/03/18 11:08 CONCLUSION: 1. Heart size is borderline prominent but well compensated. 2. No confluent infiltrate. 3. Suggestion of pleural or diaphragmatic based calcifications in the left base. Head CT 06/03/18 13:18 CONCLUSION: 1. Negative CT Head non contrast. Assessment and Plan - Plan Assessment: 58-year-old male with a history of ischemic cardiomyopathy as well as prior opiate abuse who presents with acute toxic encephalopathy likely secondary to narcotic and gabapentin overdose as well as multiorgan system dysfunction including acute liver dysfunction, acute kidney injury, acute type II NSTEMI secondary to demand ischemia. His organ dysfunction is improving. I will discuss his care with his Pain doctor (Dr. Haroldo Blake, Jr [phone]). He has failed narcotic and gabapentin pain therapy and given its life- threatening side-effects, I do not think these are safe therapies for him at this time. Plan by systems: Neurologic: Toxic Encephalopathy- resolved Opiate Dependence Opiate overdose Gabapentin overdose Chronic pain Possible opiate withdraw - s/p narcan drip - avoid long-acting sedatives - no longer a candidate for opiate/narcotic or gabapentin therapy. high abuse potential. - tylenol 500mg q6h (hepatic dosing) for pain - could consider tramadol in low dose if absolutely necessary for pain - lidocaine patches are good option for areas of musculoskeletal pain If blood pressure tolerates, could consider clonidine, but at this point his heart failure regimen is more important than clonidine to restart once bp improves. - Imodium prn for abdominal cramping or diarrhea associated with opiate withdraws. Respiratory: Acute hypercarbic and hypoxic respiratory failure- resolved - wean o2 by ca for goal spo2 > 90% - I.S. - OOB with assist Cardiovascular: Cardiogenic Shock- resolving. Ischemic cardiomyopathy, EF 30-35% Type II NSTEMI, elevated troponins - wean dobutamine off -lactate cleared. - d/c heparin drip - ASA - discussed with Dr. Brown: will monitor conservatively. most likely type II from demand ischemia. currently chest pain free. Renal: Acute kidney injury- improving. -- Strict I/Os - d/c jean baptiste - trend on daily bmp FEN/GI: Acute liver dysfunction- resolving. Hyperkalemia- resolved Lactic acidosis- resolved. - daily cmp - advance diet. Heme/ID: no infectious etiology suspected at this time Endocrine: Diabetes -- SSI Prophylaxis: GI Prophylaxis pepcid DVT Prophylaxis -- SCDs d/c heparin drip. SQH. Lines: [facility]an [facility]iste Dispo: once off dobutamine can d/c out of ICU. Dr. Montaño has agreed to see him in clinic upon return to [place]. If his organ function continues to improve as I suspect it will, he likely can be safely discharged as early as tomorrow to follow up within a week with Dr. Blake and Dr. Montaño. I have discussed this with his family who agree with this plan and will help coordinate his medical care in [place]. TRANSFER OUT OF ICU AM LABS CATH ON THURSDAY Code Status: FULL CODE Discussed Condition With: PT AND land acquisition specialist Planning: PENDING CARDIAC CATH
[2018-06-05 18:58] LABS: Hepatitits B Surface Antigen Nonreactive (Nonreactive)
[2018-06-05 19:29] LABS: Hepatitis A IgM Antibody Nonreactive (Nonreactive)
[2018-06-05] MEDS: Zolpidem Tartrate 5 MG Tablet PO PRN (21:51)
[2018-06-06 05:40] LABS: Baso % (Auto) 0.5 % (0.0-2.0); Eos # (Auto) 0.1 th/mm3 (0.0-0.4); Eos % (Auto) 1.4 % (0.0-4.0); Hematocrit 38.7 % (39.0-51.0); Hemoglobin 12.7 gm/dL (13.0-17.0); Lymph # (Auto) 0.9 th/mm3 (1.0-4.8); Lymph % (Auto) 16.3 % (9.0-44.0); Mean Corpuscular HGB Conc 32.8 % (32.0-36.0); Mean Corpuscular Hemoglobin 33.2 pg (27.0-34.0); Mean Corpuscular Volume 101.2 fL (80.0-100.0); Mean Platelet Volume 9.3 fL (7.0-11.0); Mono # (Auto) 0.5 th/mm3 (0.0-0.9); Mono % (Auto) 8.7 % (0.0-8.0); Neut # (Auto) 4.1 th/mm3 (1.8-7.7); Neut % (Auto) 73.1 % (16.0-70.0); Platelet Count 174 th/mm3 (150-450); Red Blood Count 3.82 mil/mm3 (4.50-5.90); Red Cell Distribution Width 14.6 % (11.6-17.2); White Blood Count 5.6 th/mm3 (4.0-11.0)
[2018-06-06 05:48] LABS: INR 1.1 Ratio; Prothrombin Time 11.3 sec (9.8-11.6)
[2018-06-06 06:04] LABS: Albumin 3.4 g/dL (3.4-5.0); Anion Gap 4 meq/L (5-15); Aspartate Aminotransferase 961 U/L (15-37); Blood Urea Nitrogen 16 mg/dL (7-18); Calcium 9.2 mg/dL (8.5-10.1); Carbon Dioxide 34.1 meq/L (21.0-32.0); Chloride 101 meq/L (98-107); Glucose,Random 101 mg/dL (74-106); Magnesium 1.7 mg/dL (1.5-2.5); Sodium 139 meq/L (136-145)
[2018-06-06 06:13] LABS: Alanine Aminotransferase 1597 U/L (12-78); Alkaline Phosphatase 111 U/L (45-117); Free T4 (Free Thyroxine) 1.31 ng/dL (0.76-1.46); Phosphorus 2.8 mg/dL (2.5-4.9); Thyroid Stimulating Hormone 0.627 uIU/mL (0.358-3.740)
[2018-06-06] MEDS: Heparin - SQ 10,000 UNITS/ML Vial SQ SCH ×3 (06:31→23:02)
[2018-06-06] MEDS: Chlorhexidine Gluconate 2% 1 Pack (2 Cloths) TOPICAL SCH (06:31)
[2018-06-06] MEDS: Aspirin 325 MG Tablet PO SCH (08:52)
[2018-06-06] MEDS: Ramipril 2.5 MG Capsule PO SCH (08:52)
[2018-06-06] MEDS: Furosemide 40 MG Tablet PO SCH ×2 (08:52→17:41)
--- NOTE | 2018-06-06 10:18 | P.PNCA ---
Subjective Interval history: alert and oriented x 3 in nad, assymptomatic Physical Exam Vital signs: Vital Signs 06/05/18 11:00 06/05/18 15:00 06/05/18 19:00 Temperature 98.7 F 98.5 F 98.8 F Pulse Rate 80 68 87 Respiratory Rate 20 20 22 Blood Pressure 158/96 H 156/103 H 149/91 H Pulse Oximetry 92 L 06/05/18 20:00 06/05/18 21:28 06/05/18 23:00 Temperature 98.4 F Pulse Rate 90 Respiratory Rate 24 Blood Pressure 176/80 H Pulse Oximetry 92 L 94 L 89 L 06/06/18 03:00 06/06/18 07:00 06/06/18 08:00 Temperature 97.9 F 98.1 F Pulse Rate 84 81 Respiratory Rate 18 18 16 Blood Pressure 140/83 151/100 H Pulse Oximetry 92 L 92 L Intake & Output 06/05/18 06/06/18 06/06/18 18:59 06:59 18:59 Intake Total 960 / 960 480 / 480 Output Total 1000 / 1000 1100 / 1100 Balance -40 / -40 -620 / -620 Weight 71.5 kg Intake: Oral 960 / 960 480 / 480 Output: Urine 1000 / 1000 1100 / 1100 Other: # Voids 5 Date of Last Bowel Movement 06/04/18 06/05/18 06/05/18 # Bowel Movements 1 0 - Urinary Catheter Management Indwelling Urethral Catheter Cath placed during this visit: yes, but has since been removed by the nurse Reason for continuing: Other continuation reason Insertion date: 06/03/18 Insertion time: 14:48 Removal date: 06/04/18 Removal time: 18:15 Assessment and Plan - Assessment (1) CAD (coronary artery disease) Code(s): I25.10 - Atherosclerotic heart disease of [place] coronary artery without angina pectoris Status: Acute (2) Altered mental status Code(s): R41.82 - Altered mental status, unspecified Status: Acute (3) JESUS (acute kidney injury) Code(s): N17.9 - Acute kidney failure, unspecified Status: Acute (4) Opiate overdose Code(s): T40.601A - Poisoning by unspecified narcotics, accidental ( unintentional), initial encounter Status: Acute (5) Acute hyperkalemia Code(s): E87.5 - Hyperkalemia Status: Acute (6) Non-ST elevation (NSTEMI) myocardial infarction Code(s): I21.4 - Non-ST elevation (NSTEMI) myocardial infarction Status: Acute - Plan 1.) CAD - NSTEMI, d/w Dr Cleveland who d/w patient's gill box operator in [place], patient has icm with occluded lad, suspect patient became hypotensive from narcotic overdose and leaked troponin from chronic ischemic heart disease; he is assymptomatic, rec continue medical management, ok to transfer to [facility], Dr Trevino assessed him as too high risk for plain exercise treadmill test, therefore rec [facility], will schedule tomorrow, d/w patient and Julianne, nurse at bedside and Dr Quiñones (2) Altered mental status Qualifiers: Altered mental status type: somnolence Qualified Code(s): R40.0 - Somnolence (4) Opiate overdose Qualifiers: Encounter type: initial encounter Injury intent: accidental or unintentional Qualified Code(s): T40.601A - Poisoning by unspecified narcotics, accidental ( unintentional), initial encounter
--- NOTE | 2018-06-06 10:27 | P.PNIM ---
Subjective Interval history: History of present illness: This is a 58-year-old male with a history of ischemic cardiomyopathy and EF of 30-35% with the last echo on 05/12/2018. He is visiting down from his home in [place] when he was found this morning by his family acutely altered. He was brought into the emergency department where he had pinpoint pupils and was given 2 mg of Narcan IV, at which point he woke up and began following commands. The patient takes 10 mg of OxyContin at home every 12 hours as well as 400 mg of gabapentin 3 times daily. His family is concerned that he may be abusing these medications. The patient is arousable, but somnolent and unable to provide any additional history. He denies taking extra or abusing any of these medications, although he does state to me "maybe I take an extra gabapentin ". Additionally, he was hypotensive in the emergency department not responsive to 2 L crystalloid fluid bolus. His labs are pertinent for creatinine of 2.3 with a baseline of 0.8 back in 03/2018. Initial troponin was 4.5 which misha to 5.2. EKG is significant for inferior Q waves as well as lateral ST depressions with T-wave inversions. Potassium is 5.5. Lactate was initially 2.3 which did not clear and is persistently 2.4 despite volume resuscitation. While I was evaluating the patient, I performed bedside critical care echocardiography which demonstrated a moderately depressed LVEF, moderate to severely depressed right ventricular function, a 2.4 cm dilated IVC without any respiratory variation, no pericardial effusion. I placed the patient on dobutamine at 5 mcg/kg/min with some improvement in his blood pressure. Of note, the patient recently had an ER visit here back in March 2018 where he had leg swelling with a mildly elevated BNP in the 200s and was sent home with additional Lasix. Patient is not on anticoagulation. The family states that he has not complained of shortness of breath, dyspnea on exertion. Chest pain, abdominal pain, or any other symptoms. The family does state that he recently lost his 6 months ago and they have all been worried about his mental condition since that time and have been trying to "cheer him up ". I discussed the case with his primary laborer egg producing farm Dr. Ash Montaño from [facility] whose office phone number is [phone]. He states the patient has a long history of poor compliance. Has known ischemic cardiomyopathy. Last left heart catheterization was September 2016 where the patient had a chronically 100% occluded LAD, 90% ostial circumflex lesion, chronically occluded RCA, and at that time and acutely occluded reverse saphenous vein graft to a distal obtuse marginal which was successfully stented at that time in 2015. Recent transthoracic echocardiogram in 05/12/2018 demonstrated EF of 30-35%, no regional wall motion abnormalities, mildly dilated and mildly dysfunctional RV. His laborer egg producing farm states that he was recently admitted less than a week ago in [place] with a BNP of 1580. Dr. Montaño also states that the patient often takes additional narcotic pain medication, this is been a concern of his for many years. Patient has been a candidate for an AICD in the past, but has been noncompliant with a LifeVest, which the patient recently received again less than a month ago, but is not currently wearing. Dr. Montaño feels that the patient is not compliant enough to be a good candidate for AICD therapy. Subjective: 06/04: clinically improving. off narcan drip. awake and alert. denies complaints. remains on dobutamine at 8 mcg/kg/min. I had a long talk with Mr. Pope and explained that it appears he has overdosed on oxycodone and gabapentin. he denies intentionally taking this medication and vigorously denies any suicidal ideations. He does state that he is out of these medicines now. I explained to the patient that given the risk of side-effects from these medications, including respiratory failure and organ dysfunction which he has experienced means that he is no longer a good candidate for opiate/narcotic pain therapies, and at this point I would also recommend against gabapentin therapy as well. I also had a long discussion with the patient's two adult children who agree with me that they do not think his opiate medication or gabapentin are safe options anymore for his pain. Discussed the case with Dr. Blake: patient has had a prior +UDS for alcohol and patient was counseled that misuse of alcohol + narcotics was a violation of his opiate agreement with pain clinic. He agrees that the patient has failed opiate therapy and gabapentin therapy. Dr. Blake will request medical records for this hospital visit and address a new pain plan with the patient when he travels back to [place]. Dr. Blake also stated they have psychiatric resources that he will make available and will be a mandatory part of the pain plan going forward. 06-05 TRANSFERRED TO OUR SERVICE TODAY CONSIDERING LEAVING THE HOSPITAL DR BROWN WILL DO CARDIAC CATH ON THURSDAY NO NEW COMPLAINTS AT THIS TIME DW RN AND PT AM LABS TRANSFER OUT OF ICU 06-06 patient slept well with Ambien last night Denies any current issues For cardiac catheterization tomorrow with Dr. Fatou Balderas labs Okay to transfer out of ICU Physical Exam Vital signs: Vital Signs 06/05/18 11:00 06/05/18 15:00 06/05/18 19:00 Temperature 98.7 F 98.5 F 98.8 F Pulse Rate 80 68 87 Respiratory Rate 20 20 22 Blood Pressure 158/96 H 156/103 H 149/91 H Pulse Oximetry 92 L 06/05/18 20:00 06/05/18 21:28 06/05/18 23:00 Temperature 98.4 F Pulse Rate 90 Respiratory Rate 24 Blood Pressure 176/80 H Pulse Oximetry 92 L 94 L 89 L 06/06/18 03:00 06/06/18 07:00 06/06/18 08:00 Temperature 97.9 F 98.1 F Pulse Rate 84 81 Respiratory Rate 18 18 16 Blood Pressure 140/83 151/100 H Pulse Oximetry 92 L 92 L Intake & Output 06/05/18 06/06/18 06/06/18 18:59 06:59 18:59 Intake Total 960 / 960 480 / 480 Output Total 1000 / 1000 1100 / 1100 Balance -40 / -40 -620 / -620 Weight 71.5 kg Intake: Oral 960 / 960 480 / 480 Output: Urine 1000 / 1000 1100 / 1100 Other: # Voids 5 Date of Last Bowel Movement 06/04/18 06/05/18 06/05/18 # Bowel Movements 1 0 Narrative: GENERAL: AWAKE ALERT AND ORIENTED X3 TALKATIVE AND COOPERATIVE-- SKIN: Warm and dry. HEAD: Atraumatic. Normocephalic. EYES: Pupils equal and round. No scleral icterus. No injection or drainage. ENT: No nasal bleeding or discharge. Mucous membranes pink and moist. NECK: Trachea midline. No JVD. CARDIOVASCULAR: Regular rate and rhythm. S1, S2 NO S3 OR S4 RESPIRATORY: No accessory muscle use. COARSE BREATH SOUNDS Breath sounds equal bilaterally. GASTROINTESTINAL: Abdomen soft, non-tender, nondistended. Hepatic and splenic margins not palpable. MUSCULOSKELETAL: Extremities without clubbing, cyanosis, or edema. No obvious deformities. NEUROLOGICAL: Awake and alert. No obvious cranial nerve deficits. Motor grossly within normal limits. Five out of 5 muscle strength in the arms and legs. Normal speech. PSYCHIATRIC: INAppropriate mood and affect; insight and judgment ABnormal. - Urinary Catheter Management Indwelling Urethral Catheter Cath placed during this visit: yes, but has since been removed by the nurse Reason for continuing: Other continuation reason Insertion date: 06/03/18 Insertion time: 14:48 Removal date: 06/04/18 Removal time: 18:15 Results - Labs CBC & Chem 7: 06/06/18 04:38 06/06/18 04:38 Laboratory Results - last 24 hr 06/05/18 06/06/18 06/06/18 17:58 04:38 04:38 WBC 5.6 RBC 3.82 L Hgb 12.7 L Hct 38.7 L MCV 101.2 H MCH 33.2 MCHC 32.8 RDW 14.6 Plt Count 174 MPV 9.3 Neut % (Auto) 73.1 H Lymph % (Auto) 16.3 [place] % (Auto) 8.7 H Eos % (Auto) 1.4 Baso % (Auto) 0.5 Neut # (Auto) 4.1 Lymph # (Auto) 0.9 L [place] # (Auto) 0.5 Eos # (Auto) 0.1 Baso # (Auto) 0.0 WBC Differential . Differential Comment Auto diff final PT 11.3 INR 1.1 Sodium Potassium Chloride Carbon Dioxide Anion Gap BUN Creatinine Random Glucose Calcium Phosphorus Magnesium Total Bilirubin AST ALT Alkaline Phosphatase Total Protein Albumin TSH Free T4 Hepatitis A IgM Ab Nonreactive Hep Bs Antigen Nonreactive Hep B Core IgM Ab Nonreactive Hep C IgG Ab Nonreactive 06/06/18 04:38 WBC RBC Hgb Hct MCV MCH MCHC RDW Plt Count MPV Neut % (Auto) Lymph % (Auto) [place] % (Auto) Eos % (Auto) Baso % (Auto) Neut # (Auto) Lymph # (Auto) [place] # (Auto) Eos # (Auto) Baso # (Auto) WBC Differential Differential Comment PT INR Sodium 139 Potassium 4.0 Chloride 101 Carbon Dioxide 34.1 H Anion Gap 4 L BUN 16 Creatinine 0.84 Random Glucose 101 Calcium 9.2 Phosphorus 2.8 Magnesium 1.7 Total Bilirubin 0.8 AST 961 H ALT 1597 H Alkaline Phosphatase 111 Total Protein 7.0 D Albumin 3.4 TSH 0.627 Free T4 1.31 Hepatitis A IgM Ab Hep Bs Antigen Hep B Core IgM Ab Hep C IgG Ab Microbiology 06/03/18 11:20 Blood - Peripheral Aerobic Blood Culture - Preliminary No growth in 2 days 06/03/18 11:20 Blood - Peripheral Anaerobic Blood Culture - Preliminary No growth in 2 days 06/03/18 11:20 Blood - Peripheral Aerobic Blood Culture - Preliminary No growth in 2 days 06/03/18 11:20 Blood - Peripheral Anaerobic Blood Culture - Preliminary No growth in 2 days Assessment and Plan - Plan Assessment: 58-year-old male with a history of ischemic cardiomyopathy as well as prior opiate abuse who presents with acute toxic encephalopathy likely secondary to narcotic and gabapentin overdose as well as multiorgan system dysfunction including acute liver dysfunction, acute kidney injury, acute type II NSTEMI secondary to demand ischemia. His organ dysfunction is improving. I will discuss his care with his Pain doctor (Dr. Haroldo Blake, Jr [phone]). He has failed narcotic and gabapentin pain therapy and given its life- threatening side-effects, I do not think these are safe therapies for him at this time. Plan by systems: Neurologic: Toxic Encephalopathy- resolved Opiate Dependence Opiate overdose Gabapentin overdose Chronic pain Possible opiate withdraw - s/p narcan drip - avoid long-acting sedatives - no longer a candidate for opiate/narcotic or gabapentin therapy. high abuse potential. - tylenol 500mg q6h (hepatic dosing) for pain - could consider tramadol in low dose if absolutely necessary for pain - lidocaine patches are good option for areas of musculoskeletal pain If blood pressure tolerates, could consider clonidine, but at this point his heart failure regimen is more important than clonidine to restart once bp improves. - Imodium prn for abdominal cramping or diarrhea associated with opiate withdraws. Respiratory: Acute hypercarbic and hypoxic respiratory failure- resolved - wean o2 by mn for goal spo2 > 90% - I.S. - OOB with assist Cardiovascular: Cardiogenic Shock- resolving. Ischemic cardiomyopathy, EF 30-35% Type II NSTEMI, elevated troponins - wean dobutamine off -lactate cleared. - d/c heparin drip - ASA - discussed with Dr. Brown: will monitor conservatively. most likely type II from demand ischemia. currently chest pain free. PATIENT TO HAVE CARDIAC CATH TOMORROW WITH DR BROWN Renal: Acute kidney injury- improving. -- Strict I/Os - d/c jean baptiste - trend on daily bmp FEN/GI: Acute liver dysfunction- resolving. Hyperkalemia- resolved Lactic acidosis- resolved. - daily cmp - advance diet. ELEVATED LFTS PROBABLY DUE TO HYPOTENSIVE EVENT VS SHOCK LIVER Heme/ID: no infectious etiology suspected at this time Endocrine: Diabetes -- SSI Prophylaxis: GI Prophylaxis pepcid DVT Prophylaxis -- SCDs d/c heparin drip. SQH. Lines: piv jean baptiste Dispo: once off dobutamine can d/c out of ICU. Dr. Montaño has agreed to see him in clinic upon return to [place]. If his organ function continues to improve as I suspect it will, he likely can be safely discharged as early as tomorrow to follow up within a week with Dr. Blake and Dr. Montaño. I have discussed this with his family who agree with this plan and will help coordinate his medical care in [place]. TRANSFER OUT OF ICU AM LABS CATH ON THURSDAY Code Status: FULL CODE Discussed Condition With: CARDIAC CATH TOMORROW DW RN AND PT Discharge Planning: PENDING CARDIAC CATH
[2018-06-06 11:56] LABS: Hemoglobin A1c 6.1 % (4.3-6.0)
[2018-06-06] MEDS: Zolpidem Tartrate 5 MG Tablet PO PRN (20:37)
[2018-06-07 04:14] LABS: Baso % (Auto) 0.5 % (0.0-2.0); Eos # (Auto) 0.1 th/mm3 (0.0-0.4); Eos % (Auto) 1.6 % (0.0-4.0); Hematocrit 41.5 % (39.0-51.0); Lymph # (Auto) 1.1 th/mm3 (1.0-4.8); Lymph % (Auto) 20.8 % (9.0-44.0); Mean Corpuscular HGB Conc 33.8 % (32.0-36.0); Mean Corpuscular Hemoglobin 33.8 pg (27.0-34.0); Mean Platelet Volume 8.8 fL (7.0-11.0); Mono # (Auto) 0.6 th/mm3 (0.0-0.9); Mono % (Auto) 10.7 % (0.0-8.0); Neut # (Auto) 3.5 th/mm3 (1.8-7.7); Neut % (Auto) 66.4 % (16.0-70.0); Platelet Count 178 th/mm3 (150-450); Red Blood Count 4.15 mil/mm3 (4.50-5.90); Red Cell Distribution Width 14.5 % (11.6-17.2); White Blood Count 5.2 th/mm3 (4.0-11.0)
[2018-06-07 04:33] LABS: INR 1.1 Ratio; Prothrombin Time 11.1 sec (9.8-11.6)
[2018-06-07 04:34] LABS: Albumin 3.4 g/dL (3.4-5.0); Anion Gap 6 meq/L (5-15); Aspartate Aminotransferase 282 U/L (15-37); Blood Urea Nitrogen 20 mg/dL (7-18); Calcium 9.2 mg/dL (8.5-10.1); Carbon Dioxide 32.3 meq/L (21.0-32.0); Chloride 102 meq/L (98-107); Glucose,Random 100 mg/dL (74-106); Phosphorus 3.8 mg/dL (2.5-4.9); Potassium 3.8 meq/L (3.5-5.1); Sodium 140 meq/L (136-145)
[2018-06-07 04:41] LABS: Alanine Aminotransferase 1107 U/L (12-78); Alkaline Phosphatase 110 U/L (45-117); Total Protein 6.8 g/dL (6.4-8.2)
[2018-06-07] MEDS: Heparin - SQ 10,000 UNITS/ML Vial SQ SCH ×2 (05:52→13:42)
[2018-06-07] MEDS: Ramipril 2.5 MG Capsule PO SCH (08:36)
[2018-06-07] MEDS: Furosemide 40 MG Tablet PO SCH (08:36)
[2018-06-07] MEDS: Aspirin 325 MG Tablet PO SCH (08:36)
[2018-06-07] MEDS: Chlorhexidine Gluconate 2% 1 Pack (2 Cloths) TOPICAL SCH (10:27)
[2018-06-07] MEDS ORDERED: Heparin/NS PF Inj 1,000 ML ONE (12:12)
[2018-06-07] MEDS ORDERED: fentaNYL Citrate Inj 100 MCG/2 ML Ampul ONE (12:14)
--- NOTE | 2018-06-07 13:13 | CATHPROC ---
[facility] HIS Report Study Information Study Number Admission Scheduled Start Study Start [id number] Jun 03 2018 1:49PM 06/06/2018 Jun 07 2018 12:14PM [facility] Cardiac Catheterization Admit Source Facility Department Other [facility] - Well Control Instructor Physician and Clinical Staff Initial Ramon Bernard Special Events Driver Jenn Barnes,JENN Other Russel Gunter,RT(R) Recorder Didi Bergeron ,RT(R) ScrHemant Gabriel RCIS(BS) Procedures Performed Procedure Location (Site) Vessel Name Coronary Angiograms LCA Left Coronary Coronary Angiograms LEARY-LAD Left Coronary Coronary Angiograms SVG-DIAG Left Coronary Coronary Angiograms SVG-OM CIRC Coronary Angiograms SVG-RCA Right Coronary L Heart Cath LV Gram-hand inj. LV LV Ventricle Wire insertion Fem Art (right) Femoral Art Equipment Time Parquetry Floor Layer Description Size Mfg Part Number Used/Scraped TRANSDUCER, TRUWAVE [id number] 12:35 NIELSON WARD * Used W/STOCKCOCK *[id number] [id number] *[id number] [id number] *[id number] [id number] *[id number] [id number] *[id number] [id number] *[id number] [id number] *[id number] 12:35 [employer] BLANKET,WARM AIR CCL * Used *[id number] 12:35 [employer] PACK, CCL CUSTOM * Used *[id number] 12:35 [employer] PACER PEN, SKIN DUAL W/ RULER * Used *[id number] 12:35 [employer] WIRE, 3MMJ .035 180CM 180CM Used *[id number] 12:35 NAMIC MANIFOLD, 4 PORT * Used *[id number] 12:35 [employer] OMNIPAQUE, 350 MG, 150ML 150ML [id number] 12:35 [employer] SHEATH, FR4 TERUMO (10CM) FR 4 Used *[id number] WIRE, ANGLED GLIDE .035 [id number] 12:48 TERUMO MEDICAL/ANH 260CM Used 260CM *[id number] History: Allergies Allergy Reaction NKDA History: Risk Factors Family History of Hypertension Dyslipidemia Previous ME Previous Heart Failure Premature CAD Yes Yes Yes Yes Yes Prior Valve Prior PCI Prior PCIDate Prior CABG Prior CABGDate Surgery No Yes 10/16/2016 Yes 12/17/2008 Cerebrovascular Peripheral Artery Chronic Lung On Dialysis Diabetes Diabetes Therapy Disease Disease Disease No Yes No No Yes Oral History: Risk Factors Selection Items Previous ME (>7 days) Current Smoker Diabetes History: Other Current Smoker Method Packs a Day Years Used Pack Years Yes Cigarettes 1 30 30 Labs Hgb (g/dl) Hct (%) WBC (l/cumm) Platelets (thousands) 11.60-17.00 35.00-51.00 4.00-11.00 150.00-450.00 14.0 41.5 5.2 178 Glucose (mg/dl) BUN (mg/dl) Creatinine (mg/dl) BUN:Creatinine (1:x) 74.00-106.00 7.00-18.00 0.50-1.30 10.00-20.00 100 20 0.9 22.2 Na (meq/l) K (meq/l) 136.00-145.00 3.50-5.10 140 3.8 INR (PTT:PT) 0.90-1.10 1.1 Troponin I (ng/ml) CPK (u/l) CPK-MB (ng/ML) 0.02-0.05 26.00-308.00 0.50-3.60 4.8 304 Not Drawn Medication Medication Total Dose (Bolus/Oral) Medication Total Dosage/Unit 1% XYLOCAINE 20 mL FENTANYL 25 mcg VERSED 1 mg Medications (Bolus/Oral) Medication Time Given Dosage/Unit Administered By Reason VERSED 06/07/2018 12:37:12 PM 1 mg Jenn Barnes 1 mg VERSED given in lab by Jenn Barnes, JENN in Right Antecubital via Peripheral IV. Ordered by Ramon Salazar. 1% XYLOCAINE 06/07/2018 12:37:53 PM 20 mL Ramon Lainez 20 mL 1% XYLOCAINE given in lab by Ramon Lainez in Right Groin via Subcutaneous. Ordered by Ramon Doty. FENTANYL 06/07/2018 12:38:23 PM 25 mcg Jenn Barnes 25 mcg FENTANYL given in lab by Jenn Barnes, JENN via Peripheral IV. Ordered by Ramon Lainez. Medication (Drip) Medication Time Given Dosage/Unit Concentration/Unit Diluent (ml) Solution IV Solutions 06/07/2018 12:14:18 PM 0 mL (IV) 1000 NaCl .9 Patient arrived on IV Solutions in Right Forearm via Peripheral IV. Pump/Drip Flow = 20 ml/hr using N aCl .9. Ordered by Ramon Lainez. Initial Case Assessment Cardiovascular HR NIBP Chest Pain 81 116/77 0 Edema Present Skin color Skin None Normal Warm Dry Circulatory - Right Pulses Dorsalis Pedis Femoral 2 3 Scale (0,1,2,3,4,d) Circulatory - Left Pulses Dorsalis Pedis Femoral 2 3 Scale (0,1,2,3,4,d) Circulatory - Lower Extremities Color Lower Right Color Lower Left Normal Normal Neurological State Oriented to time-place- Alert Moves all extremities person Respiration - General Respiration Rate SpO2 (%) (B/min) 12 92 Final Case Assessment Cardiovascular HR NIBP Chest Pain 81 116/77 0 Edema Present Skin color Skin None Normal Warm Dry Circulatory - Right Pulses Dorsalis Pedis Femoral 2 3 Scale (0,1,2,3,4,d) Circulatory - Left Pulses Dorsalis Pedis Femoral 2 3 Scale (0,1,2,3,4,d) Circulatory - Lower Extremities Color Lower Right Color Lower Left Normal Normal Neurological State Oriented to time-place- Alert Moves all extremities person Respiration - General Respiration Rate SpO2 (%) (B/min) 12 92 Chronological Log Time Study Chronological Log 12:08:50 Patient arrived via Bed. 12:14:06 Patient Name, D.O.B, / Armband Verified By R.N. 12:14:07 Consent signed by the physician and the patient and verified by the Well Control Instructor staff. 12:14:10 Pre-op and post- op instructions given; patient acknowledges understanding of instructions. 12:14:11 Presedation assessment performed by Well Control Instructor RN. 12:14:14 Immediate Presedation assesment performed by physician. 12:14:14 Patient has been NPO for More than 6Hrs. 12:14:16 Skin Breakdown/none per patient 12:14:16 Patient Warmer Placed on the Table. 12:14:17 Federico Prominences Protected 12:14:18 A # 20 IV was noted in the Forearm (right). Grade = 0 Patient arrived on IV Solutions in Right Forearm via Peripheral IV. Pump/Drip Flow = 20 ml/hr u sing NaCl .9. Ordered 12:14:18 by Ramon Lainez. 12:14:19 History and physical on the chart or being dictated. Vitals capture started with the following parameters, Patient=Adult, Interval=5 min, Initial Pr liaxgt=420 mmHg, 12:15:51 Deflation Rate=5 mmHg, Cuff placed on Left Arm 12:16:31 HR=80 bpm, BZMM=560/77 mmhg, SpO2=92 %, Resp=12 B/min, Jennie=10 12:16:41 Verbal Stimulation=2 Physical Stimulation=2 Airway=2 Respiration=2 TOTAL=8. (0=absent, 1=li mited, 2=present) 12:17:33 IV Warmer Connected To Patient. Assessment: Initial Case, HR=81 BPM, LBCY=798/77 mmhg, Chest Pain=0, Edema=None, Color=Normal, Skin = Warm, Dry Right Pulses: Pedro Luis Ped=2, Femoral=3 Left Pulses: Pedro Luis Ped=2, Femoral=3 12:17:40 Lower Right Extremities: Color=Normal Lower Left Extremities: Color=Normal Neurological: State=Alert, Ox3, BARNETT Respiration: Resp=12 B/min, SpO2=92 % 12:17:54 Reference ECG taken 12:21:30 HR=85 bpm, GXHJ=414/57 mmhg, SpO2=91.0 %, Resp=26 B/min, Jennie=10 12:21:58 Bilateral groins prepped with 2% chlorhexidine, and draped after a 3 min. waiting time. MD notified ready 12:23:24 12:23:53 MD responded 12:26:23 HR=77 bpm, OAWG=470/92 mmhg, SpO2=92.0 %, Resp=19 B/min 12:30:21 Pressure channel 1 zeroed. 12:30:30 HR=80 bpm, SpO2=91 %, Resp=23 B/min, Jennie=10 12:31:26 HR=81 bpm, EAIZ=187/74 mmhg, SpO2=92.0 %, Resp=25 B/min 12:32:43 MD arrived. 12:36:21 HR=75 bpm, LXUG=049/86 mmhg, SpO2=95.0 %, Resp=22 B/min 12:37:12 1 mg VERSED given in lab by Jenn Barnes, RN in Right Antecubital via Peripheral IV. Ord ered by Ramon Lainez. Time Out. Correct patient, correct procedure, correct physician, labs, allergies, and equipment verified with laborer concrete plant 12:37:42 team present. Fire risk assesment completed (see hard stop sheet for coding). Time Out Conc urred by MD and individual staff in procedure. 12:37:50 Case Start 20 mL 1% XYLOCAINE given in lab by Ramon Lainez in Right Groin via Subcutaneous. Ordered by Fatou 12:37:53 Ramon. 12:38:23 25 mcg FENTANYL given in lab by Jenn Barnes RN via Peripheral IV. Ordered by Ramon Lainez. 12:40:06 Access site was Right Femoral Artery. 12:40:16 A wire was inserted via Fem Art (right). 12:40:18 A SHEATH, FR4 TERUMO (10CM) FR 4 was advanced into the Fem Art (right) using the Percutaneo us technique. A JR 4.0 INFINITI CATHETER FR 4 was advanced over a wire. OMNIPAQUE, 350 MG, 150ML 150ML was us ed for 12:40:29 injections. Recorded Pressure: LV, HR=90, Condition=Condition 1 12:41:10 (Left Ventricle) LV 108/0/7 12:41:16 The LV was manually injected with 10 cc's and visualized. OMNIPAQUE, 350 MG, 150ML 150ML us ed. 12:41:26 HR=76 bpm, UAVB=682/72 mmhg, SpO2=95.0 %, Resp=14 B/min Recorded Pressure: LV, Ao, HR=83, Condition=Condition 1 12:41:38 (Left Ventricle) LV 97/-7/3, (Aorta) Ao 101/62/80 12:42:27 The SVG-OM was injected and visualized at various angles. OMNIPAQUE, 350 MG, 150ML 150ML us ed. Recorded Pressure: Ao, HR=92, Condition=Condition 1 12:43:06 (Aorta) Ao 93/66/79 12:44:14 The SVG-DIAG was injected and visualized at various angles. OMNIPAQUE, 350 MG, 150ML 150ML used. 12:46:25 HR=93 bpm, NIBP=88/70 mmhg, SpO2=94.0 %, Resp=15 B/min 12:51:22 HR=87 bpm, NIBP=92/67 mmhg, SpO2=95.0 %, Resp=10 B/min 12:51:29 The LEARY-LAD was injected and visualized at various angles. OMNIPAQUE, 350 MG, 150ML 150ML used. After removing the current catheter a MPA-2 INFINITI CATHETER FR 4 was advanced over a WIRE, 3M MJ .035 180CM 12:52:44 180CM. After removing the current catheter a AR MOD INFINITI CATHETER FR 4 was advanced over a WIRE, 3 MMJ .035 180CM 12:54:56 180CM. 12:56:23 HR=92 bpm, JJFB=553/70 mmhg, SpO2=95.0 %, Resp=13 B/min 12:57:36 The SVG-RCA was injected and visualized at various angles. OMNIPAQUE, 350 MG, 150ML 150ML u sed. After removing the current catheter a JL 4.0 INFINITI CATHETER FR 4 was advanced over a WIRE, 3 MMJ .035 180CM 12:58:17 180CM. 12:58:41 Catheter was removed A JL 5.0 INFINITI CATHETER FR 4 was advanced over a wire. OMNIPAQUE, 350 MG, 150ML 150ML was us ed for 12:58:42 injections. 13:01:24 HR=90 bpm, RSAH=094/74 mmhg, SpO2=96.0 %, Resp=25 B/min 13:02:23 The LCA was injected and visualized at various angles. OMNIPAQUE, 350 MG, 150ML 150ML used . 13:02:52 Case End (Physician broke scrub) Assessment: Final Case, HR=81 BPM, OBPU=417/77 mmhg, Chest Pain=0, Edema=None, Color=Normal, Sk in = Warm, Dry Right Pulses: Pedro Luis Ped=2, Femoral=3 Left Pulses: Pedro Luis Ped=2, Femoral=3 13:03:30 Lower Right Extremities: Color=Normal Lower Left Extremities: Color=Normal Neurological: State=Alert, Ox3, BARNETT Respiration: Resp=12 B/min, SpO2=92 % 13:03:40 Catheter(s) removed without difficulty 13:03:43 Sheath removed; pressure applied to access site. 13:03:45 Sterile dressing applied to site 13:03:52 Cine recording checked. 13:03:54 Bedside Report will be given. 13:04:00 A Left Heart Cath was performed. 13:06:27 HR=93 bpm, NIBP=96/74 mmhg, SpO2=96.0 %, Resp=25 B/min 13:11:52 Vitals capture stopped. 13:13:20 Patient moved to stretcher End Study - Contrast Media Used In Study Contrast Total Opened (mL) Total Used (mL) Total Wasted (mL) Omnipaque 135 135 0 End Study - Maximum Contrast Load Max Contrast Load (mL) 400.0 End Study - Radiation Exposure Fluoro Time (minutes) 10.6 End Study - Sheaths Sheaths Pulled By Sheath Hold Time (min) Hemant Cochran End Study - Patient Disposition Complications Transferred To Interventional Outcome No Telemetry Bed No attempt made
--- NOTE | 2018-06-07 13:42 | MR ---
cc: Ramon Lainez MD DATE: 06/07/2018 PROCEDURE PERFORMED: Left heart catheterization, left ventriculography, coronary angiography, saphenous vein angiography, LEARY angiography. DATE: 06/07/2018 INDICATION: Non-STEMI, cardiomyopathy, coronary artery disease, status post CABG, hypotension. PROCEDURE: The patient was brought to the cardiac catheterization laboratory, prepped and draped in the usual sterile fashion. 10 mL of 1% lidocaine was used to locally anesthetic the right common femoral artery, a 4-Hebrew sheath placed in right common femoral artery. A 4-Hebrew AR1 and JL5 catheters were used for left and right coronary angiography and left ventriculography. FINDINGS: The LV pressure is 100/0-5. The ejection fraction is 40%. The mid-inferior wall is severely hypokinetic to akinetic. Posterior wall is moderately hypokinetic. Right coronary artery is dominant and occluded proximally. The vein graft to OM is widely patent. The OM beyond the graft insertion site is a small 1-1.5 mm vessel, which is subtotally occluded for approximately 20 mm. It does opacify the mid to distal segment again which appears to be 1-1.5 mm in diameter. The angulation off the vein graft is 120-130 degrees. There is retrograde filling of the left circ, which then fills a more proximal small obtuse marginal vessel which is probably 1.75 mm in diameter, which has an ostial 50-60% stenosis. There is no further filling beyond this obtuse marginal vessel proximally. The vein graft to diagonal vessel is widely patent. The diagonal vessel is a 2 mm vessel with no significant disease angiographically. There is retrograde filling to the LAD where competitive flow is seen in the mid to distal LAD. The diagonal vessel is a 2.25 mm vessel with mild diffuse disease just beyond the graft insertion site up to 20% angiographically. The LEARY to LAD is widely patent, approximately a 2.75 mm vessel. In the LAD there is competitive flow seen beyond the graft insertion site. I do not appreciate any significant perfusion retrograde to the LEARY insertion site. The LAD is transapical. There is no significant focal stenosis beyond the graft insertion site. The [place] LAD appears to be about a 2.25 mm vessel. The vein graft to right PDA is widely patent. Right PDA is an approximately a 2 to 2.25 mm vessel with no significant obstructive disease. There is retrograde filling of the right PDA back to the distal right coronary artery which is occluded in the distal segment. There is filling of a small to medium size right posterolateral artery, which has no obvious focal stenosis, probably a 2.25 mm reference vessel diameter. There is a medial branch and a lateral branch. The left main coronary artery has a distal 60% stenosis. The left circumflex vessel is occluded in the mid-segment. The first obtuse marginal vessel is a medium size vessel, 2.5 mm in diameter with an ostial 50% stenosis, mild to moderate diffuse disease up to 30-40% in the proximal segment. The LAD is occluded after the first diagonal artery. There is a proximal 95% stenosis. The diagonal artery has ostial proximal 95% stenosis and a proximal mid-95% stenosis, reference vessel diameter of 2 mm. CONCLUSION: 1. Angiographically severe 3-vessel coronary artery disease in a right dominant system. 2. Moderate left ventricular systolic dysfunction, ejection fraction 40% with severe hypokinesis of the mid-inferior wall. 3. Left ventricular end-diastolic pressure which is low, suggesting intravascular volume depletion. 4. Four of four grafts patent, as detailed above. 4. Suspect his troponin leak is probably coming from the marginal vessel, which is grafted and/or the diagonal vessel or left anterior descending and the patient is completely symptomatic. He has a history of noncompliance. The diagonal vessel is a relatively small vessel which would require stenting of the ostial segment and the mid-segment and the [id number] segment. Given the relatively small diameter with significant lesion length and history of noncompliance, I think this would be high risk to intervene on particularly as this patient is asymptomatic again. Therefore, recommend continued medical management for any disease, cardiac risk factor modification. NOTE: If the patient develops symptoms, could definitely consider PCI of the proximal LAD and first diagonal artery. MD SHERICE Solano/PRASAD , 01:12 PM , 01:41 PM
[2018-06-07] MEDS: Acetaminophen 500 MG Tablet PO PRN (13:43)
[2018-06-07] MEDS ORDERED: Iohexol 350 MG/ML 50 ML Vial (for Cath Lab) IVCONTRAST ONE (13:47)
[2018-06-07] MEDS ORDERED: Iohexol 350 MG/ML 100 ML Vial (for Cath Lab) IVCONTRAST ONE (13:47)
--- NOTE | 2018-06-07 14:13 | P.PNIM ---
Subjective Interval history: History of present illness: This is a 58-year-old male with a history of ischemic cardiomyopathy and EF of 30-35% with the last echo on 05/12/2018. He is visiting down from his home in [place] when he was found this morning by his family acutely altered. He was brought into the emergency department where he had pinpoint pupils and was given 2 mg of Narcan IV, at which point he woke up and began following commands. The patient takes 10 mg of OxyContin at home every 12 hours as well as 400 mg of gabapentin 3 times daily. His family is concerned that he may be abusing these medications. The patient is arousable, but somnolent and unable to provide any additional history. He denies taking extra or abusing any of these medications, although he does state to me "maybe I take an extra gabapentin ". Additionally, he was hypotensive in the emergency department not responsive to 2 L crystalloid fluid bolus. His labs are pertinent for creatinine of 2.3 with a baseline of 0.8 back in 03/2018. Initial troponin was 4.5 which misha to 5.2. EKG is significant for inferior Q waves as well as lateral ST depressions with T-wave inversions. Potassium is 5.5. Lactate was initially 2.3 which did not clear and is persistently 2.4 despite volume resuscitation. While I was evaluating the patient, I performed bedside critical care echocardiography which demonstrated a moderately depressed LVEF, moderate to severely depressed right ventricular function, a 2.4 cm dilated IVC without any respiratory variation, no pericardial effusion. I placed the patient on dobutamine at 5 mcg/kg/min with some improvement in his blood pressure. Of note, the patient recently had an ER visit here back in March 2018 where he had leg swelling with a mildly elevated BNP in the 200s and was sent home with additional Lasix. Patient is not on anticoagulation. The family states that he has not complained of shortness of breath, dyspnea on exertion. Chest pain, abdominal pain, or any other symptoms. The family does state that he recently lost his 6 months ago and they have all been worried about his mental condition since that time and have been trying to "cheer him up ". I discussed the case with his primary asset management analyst Dr. Ash Montaño from [facility] whose office phone number is [phone]. He states the patient has a long history of poor compliance. Has known ischemic cardiomyopathy. Last left heart catheterization was September 2016 where the patient had a chronically 100% occluded LAD, 90% ostial circumflex lesion, chronically occluded RCA, and at that time and acutely occluded reverse saphenous vein graft to a distal obtuse marginal which was successfully stented at that time in 2015. Recent transthoracic echocardiogram in 05/12/2018 demonstrated EF of 30-35%, no regional wall motion abnormalities, mildly dilated and mildly dysfunctional RV. His asset management analyst states that he was recently admitted less than a week ago in [place] with a BNP of 1580. Dr. Montaño also states that the patient often takes additional narcotic pain medication, this is been a concern of his for many years. Patient has been a candidate for an AICD in the past, but has been noncompliant with a LifeVest, which the patient recently received again less than a month ago, but is not currently wearing. Dr. Montaño feels that the patient is not compliant enough to be a good candidate for AICD therapy. Subjective: 06/04: clinically improving. off narcan drip. awake and alert. denies complaints. remains on dobutamine at 8 mcg/kg/min. I had a long talk with Mr. Pope and explained that it appears he has overdosed on oxycodone and gabapentin. he denies intentionally taking this medication and vigorously denies any suicidal ideations. He does state that he is out of these medicines now. I explained to the patient that given the risk of side-effects from these medications, including respiratory failure and organ dysfunction which he has experienced means that he is no longer a good candidate for opiate/narcotic pain therapies, and at this point I would also recommend against gabapentin therapy as well. I also had a long discussion with the patient's two adult children who agree with me that they do not think his opiate medication or gabapentin are safe options anymore for his pain. Discussed the case with Dr. Blake: patient has had a prior +UDS for alcohol and patient was counseled that misuse of alcohol + narcotics was a violation of his opiate agreement with pain clinic. He agrees that the patient has failed opiate therapy and gabapentin therapy. Dr. Blake will request medical records for this hospital visit and address a new pain plan with the patient when he travels back to [place]. Dr. Blake also stated they have psychiatric resources that he will make available and will be a mandatory part of the pain plan going forward. 06-05 TRANSFERRED TO OUR SERVICE TODAY CONSIDERING LEAVING THE HOSPITAL DR BROWN WILL DO CARDIAC CATH ON THURSDAY NO NEW COMPLAINTS AT THIS TIME DW RN AND PT AM LABS TRANSFER OUT OF ICU 06-06 patient slept well with Ambien last night Denies any current issues For cardiac catheterization tomorrow with Dr. Fatou Balderas labs Okay to transfer out of ICU 06-07 had cardiac cath wants to go home has been cleared by cardiology will not give pain medications follow up with PCP AND CARDIOLOGY AND PAIN MANAGEMENT IN [place] NO MORE ILLEGAL DRUGS- OR TAKING HIS MEDS THE WRONG WAY Physical Exam Vital signs: Vital Signs 06/06/18 15:00 06/06/18 19:00 06/06/18 19:30 Temperature 98.4 F 99.2 F Pulse Rate 78 104 H 82 Respiratory Rate 18 18 Blood Pressure 148/98 H 94/65 L Pulse Oximetry 94 L 99 06/06/18 20:00 06/06/18 21:00 06/06/18 22:00 Temperature Pulse Rate 86 82 78 Respiratory Rate Blood Pressure Pulse Oximetry 06/06/18 23:00 06/07/18 00:00 06/07/18 01:00 Temperature 98.7 F Pulse Rate 85 64 82 Respiratory Rate 18 Blood Pressure 145/95 H Pulse Oximetry 98 06/07/18 02:00 06/07/18 03:00 06/07/18 04:00 Temperature Pulse Rate 74 70 70 Respiratory Rate Blood Pressure Pulse Oximetry 06/07/18 05:00 06/07/18 06:00 06/07/18 07:00 Temperature 98.9 F 98.9 F Pulse Rate 82 78 80 Respiratory Rate 18 20 Blood Pressure 133/80 132/81 Pulse Oximetry 97 94 L 06/07/18 07:51 06/07/18 09:00 06/07/18 10:00 Temperature Pulse Rate 59 L 70 86 Respiratory Rate Blood Pressure Pulse Oximetry 94 L 06/07/18 10:38 06/07/18 11:00 06/07/18 13:00 Temperature 98.3 F Pulse Rate 83 73 91 H Respiratory Rate 20 Blood Pressure 101/67 Pulse Oximetry 96 Intake & Output 06/06/18 06/07/18 06/07/18 18:59 06:59 18:59 Intake Total 940 / 940 240 / 240 Output Total 1200 / 1200 700 / 700 Balance -260 / -260 -460 / -460 Weight 72 kg Intake: Oral 940 / 940 240 / 240 Output: Urine 1200 / 1200 700 / 700 Other: # Voids 0 Date of Last Bowel Movement 06/05/18 06/05/18 06/06/18 Narrative: GENERAL: AWAKE ALERT AND ORIENTED X3 TALKATIVE AND COOPERATIVE-- SKIN: Warm and dry. HEAD: Atraumatic. Normocephalic. EYES: Pupils equal and round. No scleral icterus. No injection or drainage. ENT: No nasal bleeding or discharge. Mucous membranes pink and moist. NECK: Trachea midline. No JVD. CARDIOVASCULAR: Regular rate and rhythm. S1, S2 NO S3 OR S4 RESPIRATORY: No accessory muscle use. COARSE BREATH SOUNDS Breath sounds equal bilaterally. GASTROINTESTINAL: Abdomen soft, non-tender, nondistended. Hepatic and splenic margins not palpable. MUSCULOSKELETAL: Extremities without clubbing, cyanosis, or edema. No obvious deformities. RIGHT GROIN STABLE NEUROLOGICAL: Awake and alert. No obvious cranial nerve deficits. Motor grossly within normal limits. Five out of 5 muscle strength in the arms and legs. Normal speech. PSYCHIATRIC: INAppropriate mood and affect; insight and judgment ABnormal. - Urinary Catheter Management Indwelling Urethral Catheter Cath placed during this visit: yes, but has since been removed by the nurse Reason for continuing: Other continuation reason Insertion date: 06/03/18 Insertion time: 14:48 Removal date: 06/04/18 Removal time: 18:15 Results - Labs CBC & Chem 7: 06/07/18 03:20 06/07/18 03:20 Laboratory Results - last 24 hr 06/06/18 06/07/18 06/07/18 04:38 03:20 03:20 WBC 5.2 RBC 4.15 L Hgb 14.0 Hct 41.5 MCV 100.0 MCH 33.8 MCHC 33.8 RDW 14.5 Plt Count 178 MPV 8.8 Neut % (Auto) 66.4 Lymph % (Auto) 20.8 [place] % (Auto) 10.7 H Eos % (Auto) 1.6 Baso % (Auto) 0.5 Neut # (Auto) 3.5 Lymph # (Auto) 1.1 [place] # (Auto) 0.6 Eos # (Auto) 0.1 Baso # (Auto) 0.0 WBC Differential . Differential Comment Auto diff final PT 11.1 INR 1.1 Sodium Potassium Chloride Carbon Dioxide Anion Gap BUN Creatinine Random Glucose Hemoglobin A1c 6.1 H Calcium Phosphorus Magnesium Total Bilirubin AST ALT Alkaline Phosphatase Total Protein Albumin 06/07/18 03:20 WBC RBC Hgb Hct MCV MCH MCHC RDW Plt Count MPV Neut % (Auto) Lymph % (Auto) [place] % (Auto) Eos % (Auto) Baso % (Auto) Neut # (Auto) Lymph # (Auto) [place] # (Auto) Eos # (Auto) Baso # (Auto) WBC Differential Differential Comment PT INR Sodium 140 Potassium 3.8 Chloride 102 Carbon Dioxide 32.3 H Anion Gap 6 BUN 20 H Creatinine 0.93 Random Glucose 100 Hemoglobin A1c Calcium 9.2 Phosphorus 3.8 D Magnesium 2.0 Total Bilirubin 0.8 AST 282 H ALT 1107 H Alkaline Phosphatase 110 Total Protein 6.8 Albumin 3.4 Microbiology 06/03/18 11:20 Blood - Peripheral Aerobic Blood Culture - Preliminary No growth in 4 days 06/03/18 11:20 Blood - Peripheral Anaerobic Blood Culture - Preliminary No growth in 4 days 06/03/18 11:20 Blood - Peripheral Aerobic Blood Culture - Preliminary No growth in 4 days 06/03/18 11:20 Blood - Peripheral Anaerobic Blood Culture - Preliminary No growth in 4 days - Imaging Pulmonary Perfusion Imaging 06/03/18 00:00 CONCLUSION: 1. Low probability pulmonary embolism. Chest X-Ray 06/03/18 11:08 CONCLUSION: 1. Heart size is borderline prominent but well compensated. 2. No confluent infiltrate. 3. Suggestion of pleural or diaphragmatic based calcifications in the left base. Head CT 06/03/18 13:18 CONCLUSION: 1. Negative CT Head non contrast. - Procedures Ramon Brown MD DATE: 06/07/2018 PROCEDURE PERFORMED: Left heart catheterization, left ventriculography, coronary angiography, saphenous vein angiography, LEARY angiography. DATE: 06/07/2018 INDICATION: Non-STEMI, cardiomyopathy, coronary artery disease, status post CABG, hypotension. PROCEDURE: The patient was brought to the cardiac catheterization laboratory, prepped and draped in the usual sterile fashion. 10 mL of 1% lidocaine was used to locally anesthetic the right common femoral artery, a 4-Setswana sheath placed in right common femoral artery. A 4-Setswana AR1 and JL5 catheters were used for left and right coronary angiography and left ventriculography. FINDINGS: The LV pressure is 100/0-5. The ejection fraction is 40%. The mid-inferior wall is severely hypokinetic to akinetic. Posterior wall is moderately hypokinetic. Right coronary artery is dominant and occluded proximally. The vein graft to OM is widely patent. The OM beyond the graft insertion site is a small 1-1.5 mm vessel, which is subtotally occluded for approximately 20 mm. It does opacify the mid to distal segment again which appears to be 1-1.5 mm in diameter. The angulation off the vein graft is 120-130 degrees. There is retrograde filling of the left circ, which then fills a more proximal small obtuse marginal vessel which is probably 1.75 mm in diameter, which has an ostial 50-60% stenosis. There is no further filling beyond this obtuse marginal vessel proximally. The vein graft to diagonal vessel is widely patent. The diagonal vessel is a 2 mm vessel with no significant disease angiographically. There is retrograde filling to the LAD where competitive flow is seen in the mid to distal LAD. The diagonal vessel is a 2.25 mm vessel with mild diffuse disease just beyond the graft insertion site up to 20% angiographically. The LEARY to LAD is widely patent, approximately a 2.75 mm vessel. In the LAD there is competitive flow seen beyond the graft insertion site. I do not appreciate any significant perfusion retrograde to the LEARY insertion site. The LAD is transapical. There is no significant focal stenosis beyond the graft insertion site. The [place] LAD appears to be about a 2.25 mm vessel. The vein graft to right PDA is widely patent. Right PDA is an approximately a 2 to 2.25 mm vessel with no significant obstructive disease. There is retrograde filling of the right PDA back to the distal right coronary artery which is occluded in the distal segment. There is filling of a small to medium size right posterolateral artery, which has no obvious focal stenosis, probably a 2.25 mm reference vessel diameter. There is a medial branch and a lateral branch. The left main coronary artery has a distal 60% stenosis. The left circumflex vessel is occluded in the mid-segment. The first obtuse marginal vessel is a medium size vessel, 2.5 mm in diameter with an ostial 50% stenosis, mild to moderate diffuse disease up to 30-40% in the proximal segment. The LAD is occluded after the first diagonal artery. There is a proximal 95% stenosis. The diagonal artery has ostial proximal 95% stenosis and a proximal mid-95% stenosis, reference vessel diameter of 2 mm. CONCLUSION: 1. Angiographically severe 3-vessel coronary artery disease in a right dominant system. 2. Moderate left ventricular systolic dysfunction, ejection fraction 40% with severe hypokinesis of the mid-inferior wall. 3. Left ventricular end-diastolic pressure which is low, suggesting intravascular volume depletion. 4. Four of four grafts patent, as detailed above. 4. Suspect his troponin leak is probably coming from the marginal vessel, which is grafted and/or the diagonal vessel or left anterior descending and the patient is completely symptomatic. He has a history of noncompliance. The diagonal vessel is a relatively small vessel which would require stenting of the ostial segment and the mid-segment and the [id number] segment. Given the relatively small diameter with significant lesion length and history of noncompliance, I think this would be high risk to intervene on particularly as this patient is asymptomatic again. Therefore, recommend continued medical management for any disease, cardiac risk factor modification. NOTE: If the patient develops symptoms, could definitely consider PCI of the proximal LAD and first diagonal artery. Assessment and Plan - Plan Assessment: 58-year-old male with a history of ischemic cardiomyopathy as well as prior opiate abuse who presents with acute toxic encephalopathy likely secondary to narcotic and gabapentin overdose as well as multiorgan system dysfunction including acute liver dysfunction, acute kidney injury, acute type II NSTEMI secondary to demand ischemia. His organ dysfunction is improving. I will discuss his care with his Pain doctor (Dr. Haroldo Blake, Jr [phone]). He has failed narcotic and gabapentin pain therapy and given its life- threatening side-effects, I do not think these are safe therapies for him at this time. Plan by systems: Neurologic: Toxic Encephalopathy- resolved Opiate Dependence Opiate overdose Gabapentin overdose Chronic pain Possible opiate withdraw - s/p narcan drip - avoid long-acting sedatives - no longer a candidate for opiate/narcotic or gabapentin therapy. high abuse potential. - tylenol 500mg q6h (hepatic dosing) for pain - could consider tramadol in low dose if absolutely necessary for pain - lidocaine patches are good option for areas of musculoskeletal pain If blood pressure tolerates, could consider clonidine, but at this point his heart failure regimen is more important than clonidine to restart once bp improves. - Imodium prn for abdominal cramping or diarrhea associated with opiate withdraws. Respiratory: Acute hypercarbic and hypoxic respiratory failure- resolved - wean o2 by ut for goal spo2 > 90% - I.S. - OOB with assist Cardiovascular: Cardiogenic Shock- resolving. Ischemic cardiomyopathy, EF 30-35% Type II NSTEMI, elevated troponins - wean dobutamine off -lactate cleared. - d/c heparin drip - ASA - discussed with Dr. Brown: will monitor conservatively. most likely type II from demand ischemia. currently chest pain free. PATIENT TO HAVE CARDIAC CATH TOMORROW WITH DR BROWN POSITIVE CAD PER CATH Renal: Acute kidney injury- improving. -- Strict I/Os - d/c jean baptiste - trend on daily bmp FEN/GI: Acute liver dysfunction- resolving. Hyperkalemia- resolved Lactic acidosis- resolved. - daily cmp - advance diet. ELEVATED LFTS PROBABLY DUE TO HYPOTENSIVE EVENT VS SHOCK LIVER Heme/ID: no infectious etiology suspected at this time Endocrine: Diabetes -- SSI Prophylaxis: GI Prophylaxis pepcid DVT Prophylaxis -- SCDs d/c heparin drip. SQH. Lines: piv jean baptiste Dispo: once off dobutamine can d/c out of ICU. Dr. Montaño has agreed to see him in clinic upon return to [place]. If his organ function continues to improve as I suspect it will, he likely can be safely discharged as early as tomorrow to follow up within a week with Dr. Blake and Dr. Montaño. I have discussed this with his family who agree with this plan and will help coordinate his medical care in [place]. CATH DONE ON THURSDAY- NO INTERVENTION CAN DC TO HOME TODAY Code Status: FULL CODE Discussed Condition With: RN AND PT AND CM Discharge Planning: CARDIAC CATH NO INTERVENTION DC TO HOME
--- NOTE | 2018-06-07 14:25 | P.DS ---
Date of admission: 06/03/18 13:49 Primary care physician: UNKNOWN Attending physician on discharge: Ash Alvarez Anticipated date of discharge: 06/07/18 Brief History from admission: Note: Real name is TOR Castillo 1960, MR# [id number] History of present illness: This is a 58-year-old male with a history of ischemic cardiomyopathy and EF of 30-35% with the last echo on 05/12/2018. He is visiting down from his home in [place] when he was found this morning by his family acutely altered. He was brought into the emergency department where he had pinpoint pupils and was given 2 mg of Narcan IV, at which point he woke up and began following commands. The patient takes 10 mg of OxyContin at home every 12 hours as well as 400 mg of gabapentin 3 times daily. His family is concerned that he may be abusing these medications. The patient is arousable, but somnolent and unable to provide any additional history. He denies taking extra or abusing any of these medications, although he does state to me "maybe I take an extra gabapentin ". Additionally, he was hypotensive in the emergency department not responsive to 2 L crystalloid fluid bolus. His labs are pertinent for creatinine of 2.3 with a baseline of 0.8 back in 03/2018. Initial troponin was 4.5 which misha to 5.2. EKG is significant for inferior Q waves as well as lateral ST depressions with T-wave inversions. Potassium is 5.5. Lactate was initially 2.3 which did not clear and is persistently 2.4 despite volume resuscitation. While I was evaluating the patient, I performed bedside critical care echocardiography which demonstrated a moderately depressed LVEF, moderate to severely depressed right ventricular function, a 2.4 cm dilated IVC without any respiratory variation, no pericardial effusion. I placed the patient on dobutamine at 5 mcg/kg/min with some improvement in his blood pressure. Of note, the patient recently had an ER visit here back in March 2018 where he had leg swelling with a mildly elevated BNP in the 200s and was sent home with additional Lasix. Patient is not on anticoagulation. The family states that he has not complained of shortness of breath, dyspnea on exertion. Chest pain, abdominal pain, or any other symptoms. The family does state that he recently lost his 6 months ago and they have all been worried about his mental condition since that time and have been trying to "cheer him up ". I discussed the case with his primary inventory manager Dr. Ash Montaño from [facility] whose office phone number is [phone]. He states the patient has a long history of poor compliance. Has known ischemic cardiomyopathy. Last left heart catheterization was September 2016 where the patient had a chronically 100% occluded LAD, 90% ostial circumflex lesion, chronically occluded RCA, and at that time and acutely occluded reverse saphenous vein graft to a distal obtuse marginal which was successfully stented at that time in 2015. Recent transthoracic echocardiogram in 05/12/2018 demonstrated EF of 30-35%, no regional wall motion abnormalities, mildly dilated and mildly dysfunctional RV. His inventory manager states that he was recently admitted less than a week ago in [place] with a BNP of 1580. Dr. Montaño also states that the patient often takes additional narcotic pain medication, this is been a concern of his for many years. Patient has been a candidate for an AICD in the past, but has been noncompliant with a LifeVest, which the patient recently received again less than a month ago, but is not currently wearing. Dr. Montaño feels that the patient is not compliant enough to be a good candidate for AICD therapy. Due to the patient's somnolence, review of systems is unobtainable. No additional information is available from patient. Past medical history: Ischemic cardiomyopathy, EF of 30-35% Tobacco abuse COPD Chronic opiate use Chronic pain syndrome Coronary artery disease Hyperlipidemia Hypertension Diabetes Past surgical history: Left carotid endarterectomy CABG 4 Coronary PCI, most recent 09/2016 Home medications: Obtained from most recent visit here in March 2018: Niacin 500 mg daily Gabapentin 400 mg 3 times daily OxyContin 10 mg p.o. twice daily Lisinopril 5 mg daily Aspirin 81 mg daily Vitamin D3 daily Plavix 75 mg daily Metformin thousand milligrams 3 times daily Carvedilol 6.25 mg p.o. twice daily Atorvastatin 80 mg p.o. nightly Isosorbide mononitrate 60 mg p.o. daily Famotidine 20 mg p.o. twice daily Glimepiride 1 mg p.o. daily Family history: Unobtainable from the patient due to his mental status and likely noncontributory to his acute illness Social history: Active current smoker, at least a half pack a day Unknown EtOH use Per both family and primary inventory manager, the patient abuses narcotics. DS: Diagnosis - Discharge Diagnosis (1) Altered mental status Status: Acute (2) JESUS (acute kidney injury) Status: Acute (3) Opiate overdose Status: Acute (4) Acute hyperkalemia Status: Acute (5) Non-ST elevation (NSTEMI) myocardial infarction Status: Acute (6) CAD (coronary artery disease) Status: Chronic DS: Medications - Discharge Medications Prescriptions: aspirin 325 mg PO DAILY #30 tab atorvastatin 80 mg PO DAILY #30 tab carvedilol 6.25 mg PO BID #60 tab clopidogrel 75 mg PO DAILY #30 tab famotidine 20 mg PO BID #60 tab furosemide 40 mg PO BID #60 tab isosorbide mononitrate 30 mg PO DAILY #30 tab magnesium oxide 400 mg PO DAILY #30 tab nicotine 1 patch TRANSDERMAL DAILY #30 ea nitroglycerin 0.4 mg SUBLINGUAL Q5-15M PRN #100 tab PRN Reason: Chest Pain ondansetron 4 mg PO Q6H PRN #30 tab PRN Reason: Nausea Or Vomiting potassium chloride 10 meq PO BID #60 cap ramipril 2.5 mg PO DAILY #30 cap DS: Summary Hospital Course: History of present illness: This is a 58-year-old male with a history of ischemic cardiomyopathy and EF of 30-35% with the last echo on 05/12/2018. He is visiting down from his home in [place] when he was found this morning by his family acutely altered. He was brought into the emergency department where he had pinpoint pupils and was given 2 mg of Narcan IV, at which point he woke up and began following commands. The patient takes 10 mg of OxyContin at home every 12 hours as well as 400 mg of gabapentin 3 times daily. His family is concerned that he may be abusing these medications. The patient is arousable, but somnolent and unable to provide any additional history. He denies taking extra or abusing any of these medications, although he does state to me "maybe I take an extra gabapentin ". Additionally, he was hypotensive in the emergency department not responsive to 2 L crystalloid fluid bolus. His labs are pertinent for creatinine of 2.3 with a baseline of 0.8 back in 03/2018. Initial troponin was 4.5 which misha to 5.2. EKG is significant for inferior Q waves as well as lateral ST depressions with T-wave inversions. Potassium is 5.5. Lactate was initially 2.3 which did not clear and is persistently 2.4 despite volume resuscitation. While I was evaluating the patient, I performed bedside critical care echocardiography which demonstrated a moderately depressed LVEF, moderate to severely depressed right ventricular function, a 2.4 cm dilated IVC without any respiratory variation, no pericardial effusion. I placed the patient on dobutamine at 5 mcg/kg/min with some improvement in his blood pressure. Of note, the patient recently had an ER visit here back in March 2018 where he had leg swelling with a mildly elevated BNP in the 200s and was sent home with additional Lasix. Patient is not on anticoagulation. The family states that he has not complained of shortness of breath, dyspnea on exertion. Chest pain, abdominal pain, or any other symptoms. The family does state that he recently lost his 6 months ago and they have all been worried about his mental condition since that time and have been trying to "cheer him up ". I discussed the case with his primary inventory manager Dr. Ash Montaño from [facility] whose office phone number is [phone]. He states the patient has a long history of poor compliance. Has known ischemic cardiomyopathy. Last left heart catheterization was September 2016 where the patient had a chronically 100% occluded LAD, 90% ostial circumflex lesion, chronically occluded RCA, and at that time and acutely occluded reverse saphenous vein graft to a distal obtuse marginal which was successfully stented at that time in 2015. Recent transthoracic echocardiogram in 05/12/2018 demonstrated EF of 30-35%, no regional wall motion abnormalities, mildly dilated and mildly dysfunctional RV. His inventory manager states that he was recently admitted less than a week ago in [place] with a BNP of 1580. Dr. Montaño also states that the patient often takes additional narcotic pain medication, this is been a concern of his for many years. Patient has been a candidate for an AICD in the past, but has been noncompliant with a LifeVest, which the patient recently received again less than a month ago, but is not currently wearing. Dr. Montaño feels that the patient is not compliant enough to be a good candidate for AICD therapy. Subjective: 06/04: clinically improving. off narcan drip. awake and alert. denies complaints. remains on dobutamine at 8 mcg/kg/min. I had a long talk with Mr. Pope and explained that it appears he has overdosed on oxycodone and gabapentin. he denies intentionally taking this medication and vigorously denies any suicidal ideations. He does state that he is out of these medicines now. I explained to the patient that given the risk of side-effects from these medications, including respiratory failure and organ dysfunction which he has experienced means that he is no longer a good candidate for opiate/narcotic pain therapies, and at this point I would also recommend against gabapentin therapy as well. I also had a long discussion with the patient's two adult children who agree with me that they do not think his opiate medication or gabapentin are safe options anymore for his pain. Discussed the case with Dr. Blake: patient has had a prior +UDS for alcohol and patient was counseled that misuse of alcohol + narcotics was a violation of his opiate agreement with pain clinic. He agrees that the patient has failed opiate therapy and gabapentin therapy. Dr. Blake will request medical records for this hospital visit and address a new pain plan with the patient when he travels back to [place]. Dr. Blake also stated they have psychiatric resources that he will make available and will be a mandatory part of the pain plan going forward. 06-05 TRANSFERRED TO OUR SERVICE TODAY CONSIDERING LEAVING THE HOSPITAL DR BROWN WILL DO CARDIAC CATH ON THURSDAY NO NEW COMPLAINTS AT THIS TIME DW RN AND PT AM LABS TRANSFER OUT OF ICU 06-06 patient slept well with Ambien last night Denies any current issues For cardiac catheterization tomorrow with Dr. Fatou Balderas labs Okay to transfer out of ICU 06-07 had cardiac cath wants to go home has been cleared by cardiology will not give pain medications follow up with PCP AND CARDIOLOGY AND PAIN MANAGEMENT IN [place] NO MORE ILLEGAL DRUGS - Time Spent with Patient Total time spent providing and/or coordinating discharge services: Greater than 30 minutes - Quality: VTE Deep Vein Thrombosis/Pulmonary Embolism Present on Admission: No Exam Vital signs: Vital Signs 06/06/18 15:00 06/06/18 19:00 06/06/18 19:30 Temperature 98.4 F 99.2 F Pulse Rate 78 104 H 82 Respiratory Rate 18 18 Blood Pressure 148/98 H 94/65 L Pulse Oximetry 94 L 99 06/06/18 20:00 06/06/18 21:00 06/06/18 22:00 Temperature Pulse Rate 86 82 78 Respiratory Rate Blood Pressure Pulse Oximetry 06/06/18 23:00 06/07/18 00:00 06/07/18 01:00 Temperature 98.7 F Pulse Rate 85 64 82 Respiratory Rate 18 Blood Pressure 145/95 H Pulse Oximetry 98 06/07/18 02:00 06/07/18 03:00 06/07/18 04:00 Temperature Pulse Rate 74 70 70 Respiratory Rate Blood Pressure Pulse Oximetry 06/07/18 05:00 06/07/18 06:00 06/07/18 07:00 Temperature 98.9 F 98.9 F Pulse Rate 82 78 80 Respiratory Rate 18 20 Blood Pressure 133/80 132/81 Pulse Oximetry 97 94 L 06/07/18 07:51 06/07/18 09:00 06/07/18 10:00 Temperature Pulse Rate 59 L 70 86 Respiratory Rate Blood Pressure Pulse Oximetry 94 L 06/07/18 10:38 06/07/18 11:00 06/07/18 13:00 Temperature 98.3 F Pulse Rate 83 73 91 H Respiratory Rate 20 Blood Pressure 101/67 Pulse Oximetry 96 06/07/18 13:30 06/07/18 14:00 Temperature 98.0 F Pulse Rate 90 79 Respiratory Rate 20 Blood Pressure 119/70 Pulse Oximetry 95 Intake & Output 06/06/18 06/07/18 06/07/18 18:59 06:59 18:59 Intake Total 940 / 940 240 / 240 Output Total 1200 / 1200 700 / 700 Balance -260 / -260 -460 / -460 Weight 72 kg Intake: Oral 940 / 940 240 / 240 Output: Urine 1200 / 1200 700 / 700 Other: # Voids 0 Date of Last Bowel Movement 06/05/18 06/05/18 06/07/18 Narrative: GENERAL: AWAKE ALERT AND ORIENTED X3 TALKATIVE AND COOPERATIVE-- SKIN: Warm and dry. HEAD: Atraumatic. Normocephalic. EYES: Pupils equal and round. No scleral icterus. No injection or drainage. ENT: No nasal bleeding or discharge. Mucous membranes pink and moist. NECK: Trachea midline. No JVD. CARDIOVASCULAR: Regular rate and rhythm. S1, S2 NO S3 OR S4 RESPIRATORY: No accessory muscle use. COARSE BREATH SOUNDS Breath sounds equal bilaterally. GASTROINTESTINAL: Abdomen soft, non-tender, nondistended. Hepatic and splenic margins not palpable. MUSCULOSKELETAL: Extremities without clubbing, cyanosis, or edema. No obvious deformities. RIGHT GROIN IS STABLE NEUROLOGICAL: Awake and alert. No obvious cranial nerve deficits. Motor grossly within normal limits. Five out of 5 muscle strength in the arms and legs. Normal speech. PSYCHIATRIC: INAppropriate mood and affect; insight and judgment ABnormal. Results Procedures completed during hospitalization: Ramon Brown MD DATE: 06/07/2018 PROCEDURE PERFORMED: Left heart catheterization, left ventriculography, coronary angiography, saphenous vein angiography, LEARY angiography. DATE: 06/07/2018 INDICATION: Non-STEMI, cardiomyopathy, coronary artery disease, status post CABG, hypotension. PROCEDURE: The patient was brought to the cardiac catheterization laboratory, prepped and draped in the usual sterile fashion. 10 mL of 1% lidocaine was used to locally anesthetic the right common femoral artery, a 4-Lao sheath placed in right common femoral artery. A 4-Lao AR1 and JL5 catheters were used for left and right coronary angiography and left ventriculography. FINDINGS: The LV pressure is 100/0-5. The ejection fraction is 40%. The mid-inferior wall is severely hypokinetic to akinetic. Posterior wall is moderately hypokinetic. Right coronary artery is dominant and occluded proximally. The vein graft to OM is widely patent. The OM beyond the graft insertion site is a small 1-1.5 mm vessel, which is subtotally occluded for approximately 20 mm. It does opacify the mid to distal segment again which appears to be 1-1.5 mm in diameter. The angulation off the vein graft is 120-130 degrees. There is retrograde filling of the left circ, which then fills a more proximal small obtuse marginal vessel which is probably 1.75 mm in diameter, which has an ostial 50-60% stenosis. There is no further filling beyond this obtuse marginal vessel proximally. The vein graft to diagonal vessel is widely patent. The diagonal vessel is a 2 mm vessel with no significant disease angiographically. There is retrograde filling to the LAD where competitive flow is seen in the mid to distal LAD. The diagonal vessel is a 2.25 mm vessel with mild diffuse disease just beyond the graft insertion site up to 20% angiographically. The LEARY to LAD is widely patent, approximately a 2.75 mm vessel. In the LAD there is competitive flow seen beyond the graft insertion site. I do not appreciate any significant perfusion retrograde to the LEARY insertion site. The LAD is transapical. There is no significant focal stenosis beyond the graft insertion site. The [place] LAD appears to be about a 2.25 mm vessel. The vein graft to right PDA is widely patent. Right PDA is an approximately a 2 to 2.25 mm vessel with no significant obstructive disease. There is retrograde filling of the right PDA back to the distal right coronary artery which is occluded in the distal segment. There is filling of a small to medium size right posterolateral artery, which has no obvious focal stenosis, probably a 2.25 mm reference vessel diameter. There is a medial branch and a lateral branch. The left main coronary artery has a distal 60% stenosis. The left circumflex vessel is occluded in the mid-segment. The first obtuse marginal vessel is a medium size vessel, 2.5 mm in diameter with an ostial 50% stenosis, mild to moderate diffuse disease up to 30-40% in the proximal segment. The LAD is occluded after the first diagonal artery. There is a proximal 95% stenosis. The diagonal artery has ostial proximal 95% stenosis and a proximal mid-95% stenosis, reference vessel diameter of 2 mm. CONCLUSION: 1. Angiographically severe 3-vessel coronary artery disease in a right dominant system. 2. Moderate left ventricular systolic dysfunction, ejection fraction 40% with severe hypokinesis of the mid-inferior wall. 3. Left ventricular end-diastolic pressure which is low, suggesting intravascular volume depletion. 4. Four of four grafts patent, as detailed above. 4. Suspect his troponin leak is probably coming from the marginal vessel, which is grafted and/or the diagonal vessel or left anterior descending and the patient is completely symptomatic. He has a history of noncompliance. The diagonal vessel is a relatively small vessel which would require stenting of the ostial segment and the mid-segment and the [id number] segment. Given the relatively small diameter with significant lesion length and history of noncompliance, I think this would be high risk to intervene on particularly as this patient is asymptomatic again. Therefore, recommend continued medical management for any disease, cardiac risk factor modification. NOTE: If the patient develops symptoms, could definitely consider PCI of the proximal LAD and first diagonal artery. Completed studies during hospitalization: Laboratory Results WBC 5.2 th/mm3 (4.0-11.0) 06/07/18 03:20 RBC 4.15 mil/mm3 (4.50-5.90) L 06/07/18 03:20 Hgb 14.0 gm/dL (13.0-17.0) 06/07/18 03:20 Hct 41.5 % (39.0-51.0) 06/07/18 03:20 MCV 100.0 fL (80.0-100.0) 06/07/18 03:20 MCH 33.8 pg (27.0-34.0) 06/07/18 03:20 MCHC 33.8 % (32.0-36.0) 06/07/18 03:20 RDW 14.5 % (11.6-17.2) 06/07/18 03:20 Plt Count 178 th/mm3 (150-450) 06/07/18 03:20 MPV 8.8 fL (7.0-11.0) 06/07/18 03:20 Neut % (Auto) 66.4 % (16.0-70.0) 06/07/18 03:20 Lymph % (Auto) 20.8 % (9.0-44.0) 06/07/18 03:20 [place] % (Auto) 10.7 % (0.0-8.0) H 06/07/18 03:20 Eos % (Auto) 1.6 % (0.0-4.0) 06/07/18 03:20 Baso % (Auto) 0.5 % (0.0-2.0) 06/07/18 03:20 Neut # (Auto) 3.5 th/mm3 (1.8-7.7) 06/07/18 03:20 Lymph # (Auto) 1.1 th/mm3 (1.0-4.8) 06/07/18 03:20 [place] # (Auto) 0.6 th/mm3 (0.0-0.9) 06/07/18 03:20 Eos # (Auto) 0.1 th/mm3 (0.0-0.4) 06/07/18 03:20 Baso # (Auto) 0.0 th/mm3 (0.0-0.2) 06/07/18 03:20 WBC Differential . 06/07/18 03:20 Differential Comment Auto diff final 06/07/18 03:20 PT 11.1 sec (9.8-11.6) 06/07/18 03:20 INR 1.1 Ratio 06/07/18 03:20 APTT 40.5 sec (24.3-30.1) H 06/04/18 12:27 Puncture Site Left radial 06/03/18 15:11 Patient Temperature 98.6 06/03/18 15:11 O2 Saturation 87 % (90-100) L* 06/03/18 15:11 ABG pH 7.24 (7.380-7.420) L* 06/03/18 15:11 ABG pCO2 75 mmHg (38-42) H* 06/03/18 15:11 ABG pO2 75 mmHg (61-120) 06/03/18 15:11 ABG HCO3 31 mmol/L (22-26) H 06/03/18 15:11 ABG O2 Content 13.1 Vol % (12.0-20.0) 06/03/18 15:11 ABG Base Excess 4.2 mmol/L (-2-2) H 06/03/18 15:11 ABG Methemoglobin 0.9 % (0-2) 06/03/18 15:11 Walter Test Present 06/03/18 15:11 Hemoglobin 10.7 G/DL (12.0-16.0) L 06/03/18 15:11 Carboxyhemoglobin 5.7 % (0-4) H* 06/03/18 15:11 O2 Delivery Device Nasal cannula 06/03/18 15:11 Liter Flow 3.00 L/M 06/03/18 15:11 Inspired O2 21 % 06/03/18 15:11 Critical Value Yes 06/03/18 15:11 Sodium 140 meq/L (136-145) 06/07/18 03:20 Potassium 3.8 meq/L (3.5-5.1) 06/07/18 03:20 Chloride 102 meq/L (98-107) 06/07/18 03:20 Carbon Dioxide 32.3 meq/L (21.0-32.0) H 06/07/18 03:20 Anion Gap 6 meq/L (5-15) 06/07/18 03:20 BUN 20 mg/dL (7-18) H 06/07/18 03:20 Creatinine 0.93 mg/dL (0.60-1.30) 06/07/18 03:20 Estimated GFR Greater than 89 mL/min (>89) 06/05/18 03:37 POC Glucose 145 mg/dl (68-110) H 06/05/18 09:18 Random Glucose 100 mg/dL (74-106) 06/07/18 03:20 Hemoglobin A1c 6.1 % (4.3-6.0) H 06/06/18 04:38 Lactic Acid 2.4 mmol/L (0.4-2.0) H 06/03/18 14:25 Calcium 9.2 mg/dL (8.5-10.1) 06/07/18 03:20 Phosphorus 3.8 mg/dL (2.5-4.9) D 06/07/18 03:20 Magnesium 2.0 mg/dL (1.5-2.5) 06/07/18 03:20 Total Bilirubin 0.8 mg/dL (0.2-1.0) 06/07/18 03:20 AST 282 U/L (15-37) H 06/07/18 03:20 ALT 1107 U/L (12-78) H 06/07/18 03:20 Alkaline Phosphatase 110 U/L (45-117) 06/07/18 03:20 Total Creatine Kinase 304 U/L (39-308) 06/04/18 12:27 CK-MB (CK-2) 12.7 ng/mL (0.5-3.6) H 06/03/18 12:20 Troponin I 4.80 ng/mL (0.02-0.05) H* 06/05/18 00:50 B-Natriuretic Peptide 530 pg/mL (0-100) H 06/03/18 23:24 Total Protein 6.8 g/dL (6.4-8.2) 06/07/18 03:20 Albumin 3.4 g/dL (3.4-5.0) 06/07/18 03:20 TSH 0.627 uIU/mL (0.358-3.740) 06/06/18 04:38 Free T4 1.31 ng/dL (0.76-1.46) 06/06/18 04:38 Urine Color Yellow (Yellw/Straw) 06/03/18 15:04 Urine Clarity Hazy (Clear) H 06/03/18 15:04 Urine pH 5.0 (5.0-8.5) 06/03/18 15:04 Ur Specific [place] 1.018 (1.002-1.035) 06/03/18 15:04 Urine Protein 30 mg/dL (Neg-Trace) H 06/03/18 15:04 Urine Glucose (UA) 50 mg/dL (Negative) 06/03/18 15:04 Urine Ketones Negative mg/dL (Negative) 06/03/18 15:04 Urine Occult Blood Negative (Negative) 06/03/18 15:04 Urine Nitrate Negative (Negative) 06/03/18 15:04 Urine Bilirubin Negative (Negative) 06/03/18 15:04 Urine Urobilinogen Less than 2 mg/dL (Less than 2) 06/03/18 15:04 Ur Leukocyte Esterase Negative (Negative) 06/03/18 15:04 Urine RBC 1 /hpf (0-3) 06/03/18 15:04 Urine WBC 1 /hpf (0-5) 06/03/18 15:04 Ur Squamous Epith Cells <1 /hpf (0-5) 06/03/18 15:04 Hyaline Casts 4 /lpf (0-3) 06/03/18 15:04 Urine Mucus Few /lpf (Occasional) H 06/03/18 15:04 Micro UA Comment Cath-culture not ind 06/03/18 15:04 Urine Culture Comments Cath-cult not ind 06/03/18 15:04 Nasal Screen MRSA (PCR) Not detected (Negative) 06/03/18 17:45 Urine Opiates Screen Neg (Neg) 06/03/18 15:04 Ur Barbiturates Screen Neg (Neg) 06/03/18 15:04 Ur Amphetamine Screen Neg (Neg) 06/03/18 15:04 Ur Amphetamines Screen Neg (Neg) 06/03/18 15:04 U Benzodiazepines Scrn Neg (Neg) 06/03/18 15:04 Urine Cocaine Screen Neg (Neg) 06/03/18 15:04 U Cannabinoids Screen Neg (Neg) 06/03/18 15:04 Serum Alcohol Less than 3 mg/dL (0-5) 06/03/18 11:20 Hepatitis A IgM Ab Nonreactive (Nonreactive) 06/05/18 17:58 Hep Bs Antigen Nonreactive (Nonreactive) 06/05/18 17:58 Hep B Core IgM Ab Nonreactive (Nonreactive) 06/05/18 17:58 Hep C IgG Ab Nonreactive (Nonreactive) 06/05/18 17:58 Impressions Pulmonary Perfusion Imaging 06/03/18 00:00 CONCLUSION: 1. Low probability pulmonary embolism. Chest X-Ray 06/03/18 11:08 CONCLUSION: 1. Heart size is borderline prominent but well compensated. 2. No confluent infiltrate. 3. Suggestion of pleural or diaphragmatic based calcifications in the left base. Head CT 06/03/18 13:18 CONCLUSION: 1. Negative CT Head non contrast. Labs on day of discharge: Labs from last 24 hours 06/07/18 06/07/18 06/07/18 03:20 03:20 03:20 WBC 5.2 RBC 4.15 L Hgb 14.0 Hct 41.5 MCV 100.0 MCH 33.8 MCHC 33.8 RDW 14.5 Plt Count 178 MPV 8.8 Neut % (Auto) 66.4 Lymph % (Auto) 20.8 [place] % (Auto) 10.7 H Eos % (Auto) 1.6 Baso % (Auto) 0.5 Neut # (Auto) 3.5 Lymph # (Auto) 1.1 [place] # (Auto) 0.6 Eos # (Auto) 0.1 Baso # (Auto) 0.0 WBC Differential . Differential Comment Auto diff final PT 11.1 INR 1.1 Sodium 140 Potassium 3.8 Chloride 102 Carbon Dioxide 32.3 H Anion Gap 6 BUN 20 H Creatinine 0.93 Random Glucose 100 Calcium 9.2 Phosphorus 3.8 D Magnesium 2.0 Total Bilirubin 0.8 AST 282 H ALT 1107 H Alkaline Phosphatase 110 Total Protein 6.8 Albumin 3.4 Preliminary micro results at discharge 06/03/18 11:20 Aerobic Blood Culture - Preliminary Blood - Peripheral No growth in 4 days Anaerobic Blood Culture - Preliminary No growth in 4 days 06/03/18 11:20 Aerobic Blood Culture - Preliminary Blood - Peripheral No growth in 4 days Anaerobic Blood Culture - Preliminary No growth in 4 days - Impressions ITS Impressions Pulmonary Perfusion Imaging 06/03/18 00:00 CONCLUSION: 1. Low probability pulmonary embolism. Chest X-Ray 06/03/18 11:08 CONCLUSION: 1. Heart size is borderline prominent but well compensated. 2. No confluent infiltrate. 3. Suggestion of pleural or diaphragmatic based calcifications in the left base. Head CT 06/03/18 13:18 CONCLUSION: 1. Negative CT Head non contrast. Discharge Plan - Discharge Disposition Patient Disposition: 01 Discharge Home - Discharge Condition Condition: Good - Discharge Order Discharge Orders: Discharge Order (Routine); Ordered 06/07/18 Ordered By: Ash Alvarez - Discharge Details Anticipated Discharge Date: 06/07/18 Discharge Comment: DC TO HOME - Physicians Team Primary Care Provider: UNKNOWN, Attending Provider: Ash Alvarez Other Providers: Ramon Brown MD ; Gilma Sky MD
== END 2018-06-07 16:20 | disposition home or self-care (01) ==
LOC: NEPC 11:03 → EDBD 13:49 → NEDA 13:49 → MERGE 13:49 → HCVI 16:39 → HCPC 06-06 13:50
PROVIDERS: ADMIT Hospitalist; ATTEND Hospitalist